=== PATIENT | male | born 1970 | race Hispanic/Latino ===

== ENCOUNTER 2018-07-05 15:24 | Inpatient (IN) | payer OTHER ==
--- NOTE | 2017-07-06 08:30 | NUR ---
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
[~2018-07-05] VITALS: Ht 172.7 cm; Wt 81.0 kg
[2018-07-05 16:01] LABS: BASOPHILS % (AUTO) 0.7 % (0.0-5.0); HEMATOCRIT 41.8 % (42-54); LYMPHOCYTES % (AUTO) 29.9 % (21.0-51.0); MEAN CORPUSCULAR HEMOGLOBIN 29.5 pg (27.0-33.0); MEAN CORPUSCULAR HGB CONC 33.7 g/dL (32.0-36.0); MEAN CORPUSCULAR VOLUME 87.4 fL (79-99); MONOCYTES % (AUTO) 8.4 % (3.0-13.0); PLATELET COUNT (AUTO) 67 K/uL (130-400); RED BLOOD CELL COUNT(AUTO) 4.78 MIL/uL (4.50-6.20); RED CELL DISTRIBUTION WIDTH 15.1 % (11.0-15.5); WHITE BLOOD COUNT (AUTO) 4.6 K/uL (4.8-10.8)
[2018-07-05 16:10] LABS: CREATININE 1.1 mg/dL (0.5-1.5); POTASSIUM 3.6 mmol/L (3.5-5.1)
[2018-07-05 16:13] LABS: INR 1.1 (0.85-1.15); PARTIAL THROMBOPLASTIN TIME 28.9 SEC (26.3-35.5); PROTHROMBIN TIME 11.5 SEC (9.6-11.6)
[2018-07-05 16:15] LABS: ALBUMIN 2.8 g/dL (3.5-5.0); BILIRUBIN,TOTAL 0.5 mg/dL (0.2-1.0); TOTAL PROTEIN, SERUM 7.6 g/dL (6.0-8.3)
[2018-07-05 16:33] LABS: B-TYPE NATRIURETIC PEPTIDE 7 pg/mL (0-100)
[2018-07-05] MEDS ORDERED: GLUCAGON 1MG KIT 1 MG ML IM PRN (18:45)
[2018-07-05] MEDS ORDERED: ONDANSETRON HCL 4 MG/2 ML VIAL IV PRN (18:45)
[2018-07-05] MEDS ORDERED: LEVOFLOXACIN 500 MG/D5W 100 ML 100 ML IV SCH (18:45)
[2018-07-05] MEDS ORDERED: DEXTROSE 50%-WATER 50 ML DISP.SYRIN IV PRN (18:45)
[2018-07-05 19:17] LABS: HEMOGLOBIN A1C 9.5 % (4.0-6.0)
[2018-07-05 20:00] VITALS: BP 131/75
--- NOTE | 2018-07-05 20:15 | NUR ---
REPORT RECEIVED FOR PT. DIRECT ADMIT FROM [facility] DUE TO IMAGES SHOWING PULMONARY NODULES.
[2018-07-05] MEDS: SODIUM CHLORIDE 0.9% 1000ML 1,000 ML IV SCH (21:00)
--- NOTE | 2018-07-05 21:00 | NUR ---
PT ASSESSMENT-MEDICATIONS RECONCILED. STATES HAS LEVAQUIN IN PO FORM AT HOME. DOES NOT RECALL DOSE. DENIES ANY SURGICAL HISTORY. STATES IS ONLY DIAGNOSED WITH DIABETES. NO DISTRESS NOTED. AAOX4. PERRLA. DOES HAD INCREASED COUGH. STATES HAS HAD COUGH FOR THE PAST FEW WEEKS. PT HAS NOTED NIGHT SWEATS IN THE LAST FEW DAYS. STATES THOUGHT THEY WERE HOT FLASHES. PT ABLE TO AMBULATE WITHOUT ASSISTANCE. VERY INDEPENDENT. UNDERSTANDS MUST BE BED REST WITH BRP. ACTIVE BOWEL SOUNDS. LAST BM 07/05. IV PATENT. ON IV FLUIDS AT 100ML/HR.
[2018-07-05] MEDS: INSULIN HUMULIN R 100 UNIT/ML 3ML SQ SCH (22:07)
[2018-07-05] MEDS ORDERED: IPRATROPIUM/ALBUTEROL SULFATE 3 ML SOLUTION IH ONE (22:44)
[2018-07-05] MEDS: IPRATROPIUM/ALBUTEROL SULFATE 3 ML SOLUTION IH SCH (23:04)
[2018-07-05] MEDS ORDERED: GLIP5TAB11 PO (23:20)
[2018-07-05] MEDS ORDERED: METF-446 PO (23:20)
[2018-07-06] VITALS: BP 119/73
--- NOTE | 2018-07-06 01:23 | NUR ---
PENDING UA, RESP CUL, AFB. PT HAD NOT BEEN ABLE TO HAVE A GOOD SPUTUM EVEN WHEN BEING INDUCE. PT AWARE OF PENDING ORDERS.
[2018-07-06] MEDS ORDERED: SODIUM CHLORIDE 3% FOR INHALATION 4 ML/AMP VIAL.NEB IH ONE ×3 (01:33→11:20)
[2018-07-06 04:00] VITALS: BP 114/73
[2018-07-06 05:29] LABS: HEMATOCRIT 39.9 % (42-54); MEAN CORPUSCULAR HEMOGLOBIN 29.3 pg (27.0-33.0); MEAN CORPUSCULAR HGB CONC 33.5 g/dL (32.0-36.0); MEAN CORPUSCULAR VOLUME 87.4 fL (79-99); PLATELET COUNT (AUTO) 54 K/uL (130-400); RED BLOOD CELL COUNT(AUTO) 4.57 MIL/uL (4.50-6.20); WHITE BLOOD COUNT (AUTO) 4.2 K/uL (4.8-10.8)
[2018-07-06 05:41] LABS: BAND NEUTROPHILS % (MANUAL) 14 % (0-2); LYMPHOCYTES % (MANUAL) 36 % (22-44); MONOCYTES % (MANUAL) 12 % (2-9); SEGMENTED NEUTROPHILS % 38 % (40-70)
[2018-07-06 05:42] LABS: MAN.DIFF COMMENT-IMPRESSION MANUAL DIFFERENTIAL; PLATELET MORPHOLOGY COMMENT DECREASED
[2018-07-06 05:45] LABS: ALBUMIN 2.6 g/dL (3.5-5.0); BILIRUBIN,TOTAL 0.8 mg/dL (0.2-1.0); TOTAL PROTEIN, SERUM 6.9 g/dL (6.0-8.3)
[2018-07-06] MEDS: IPRATROPIUM/ALBUTEROL SULFATE 3 ML SOLUTION IH SCH ×4 (06:04→22:58)
[2018-07-06] MEDS: INSULIN HUMULIN R 100 UNIT/ML 3ML SQ SCH ×4 (06:18→21:38)
[2018-07-06] MEDS: PANTOPRAZOLE SODIUM 40 MG TABLET.DR PO SCH (07:47)
[2018-07-06 07:56] VITALS: BP 124/72
[2018-07-06 08:57] LABS: APPEARANCE,URINE Clear (CLEAR); BILIRUBIN,URINE Negative (NEGATIVE); COLOR,URINE Yellow (YELLOW); GLUCOSE, URINE (UA) Negative (NEGATIVE); KETONES,URINE Negative (NEGATIVE); LEUKOCYTE ESTERASE ,URINE Moderate (NEGATIVE); NITRATE,URINE Negative (NEGATIVE); OCCULT BLOOD,URINE Negative (NEGATIVE); PROTEIN,URINE Negative (NEGATIVE); UROBILINOGEN,URINE 0.2 mg/dL (0.2-1.0)
[2018-07-06] MEDS ORDERED: METFORMIN HCL 500 MG TABLET PO SCH (09:00)
[2018-07-06] MEDS ORDERED: GLIPIZIDE 5 MG TABLET PO SCH (09:00)
[2018-07-06 09:03] LABS: BACTERIA,URINE Rare /HPF (None Seen); RBC,URINE 0-1 /HPF (0-1); SQUAMOUS EPITHELIAL CELL,UR Rare /HPF (0-2)
[2018-07-06] MEDS: SODIUM CHLORIDE 0.9% 1000ML 1,000 ML IV SCH ×2 (09:30→21:32)
[2018-07-06 10:59] VITALS: BP 129/66
[2018-07-06 16:47] VITALS: BP 133/63
[2018-07-06] MEDS ORDERED: SODIUM CHLORIDE 0.9% 250 ML IV ONE (16:48)
--- NOTE | 2018-07-06 16:50 | NUR ---
PPD- PT IDENTIFIED USING 2 PT IDENTIFIERS. PLACED PPD TO RIGHT ANTERIOR FOREARM, NO BLEEDING OR HEMATOMA NOTED. WILL READ ON 72 HRS.
[2018-07-06] MEDS: CEFEPIME HCL 2 GM VIAL IVP SCH ×2 (18:53→23:48)
[2018-07-06 20:00] VITALS: BP 126/78
[2018-07-06] MEDS: DOXYCYCLINE HYCLATE 100 MG TABLET PO SCH (21:31)
[2018-07-07] VITALS: BP 117/71
[2018-07-07 04:00] VITALS: BP 138/86
[2018-07-07 04:15] LABS: ABG BASE EXCESS -0.9 mmol/L (-2.0-3.0); ABG HCO3 22.6 mmol/L (21.0-28.0); ABG OXYGEN SATURATION 95.3 % (95.0-99.0); ABG PCO2 34 mmHg (35-48)
[2018-07-07 04:38] LABS: BASOPHILS % (AUTO) 0.8 % (0.0-5.0); EOSINOPHILS % (AUTO) 2.2 % (0.0-8.0); HEMATOCRIT 39.4 % (42-54); LYMPHOCYTES % (AUTO) 28.3 % (21.0-51.0); MEAN CORPUSCULAR HEMOGLOBIN 29.5 pg (27.0-33.0); MEAN CORPUSCULAR HGB CONC 33.6 g/dL (32.0-36.0); MEAN CORPUSCULAR VOLUME 87.7 fL (79-99); MONOCYTES % (AUTO) 11.3 % (3.0-13.0); NEUTROPHILS % (AUTO) 57.4 % (40.0-77.0); NUCLEATED RED BLOOD CELLS 0.1 % (0.0-0.19); PLATELET COUNT (AUTO) 74 K/uL (130-400); RED BLOOD CELL COUNT(AUTO) 4.49 MIL/uL (4.50-6.20); RED CELL DISTRIBUTION WIDTH 15.3 % (11.0-15.5); WHITE BLOOD COUNT (AUTO) 3.5 K/uL (4.8-10.8)
[2018-07-07 04:52] LABS: INR 1.12 (0.85-1.15); PARTIAL THROMBOPLASTIN TIME 29.4 SEC (26.3-35.5); PROTHROMBIN TIME 11.7 SEC (9.6-11.6)
[2018-07-07 05:36] LABS: CREATININE 0.9 mg/dL (0.5-1.5); MAGNESIUM 1.7 mg/dL (1.80-2.40); PHOSPHORUS 3.4 mg/dL (2.5-4.9); POTASSIUM 3.8 mmol/L (3.5-5.1)
[2018-07-07] MEDS: INSULIN HUMULIN R 100 UNIT/ML 3ML SQ SCH ×3 (05:51→16:30)
[2018-07-07] MEDS: GUAIFENESIN-CODEINE 5 ML SYRUP PO PRN ×3 (06:03→20:34)
[2018-07-07] MEDS: IPRATROPIUM/ALBUTEROL SULFATE 3 ML SOLUTION IH SCH ×4 (07:07→23:25)
[2018-07-07 08:00] VITALS: BP 126/66
[2018-07-07] MEDS: PANTOPRAZOLE SODIUM 40 MG TABLET.DR PO SCH (09:13)
[2018-07-07] MEDS: DOXYCYCLINE HYCLATE 100 MG TABLET PO SCH ×2 (09:13→20:27)
[2018-07-07] MEDS: CEFEPIME HCL 2 GM VIAL IVP SCH ×2 (09:13→16:10)
[2018-07-07] MEDS: SODIUM CHLORIDE 0.9% 1000ML 1,000 ML IV SCH ×2 (10:48→20:34)
[2018-07-07 12:00] VITALS: BP 131/78
[2018-07-07 16:00] VITALS: BP 146/84
[2018-07-07] MEDS: MAGNESIUM 2GM PREMIX 50ML 50 ML IV SCH (16:10)
[2018-07-07 19:20] VITALS: BP 123/73
[2018-07-07] MEDS: ACETAMINOPHEN 325 MG TAB PO PRN (20:37)
[2018-07-08] VITALS (9 sets, daily range): BP systolic 102–133; BP diastolic 55–76
[2018-07-08] MEDS: CEFEPIME HCL 2 GM VIAL IVP SCH ×4 (00:07→22:49)
[2018-07-08] MEDS: INSULIN HUMULIN R 100 UNIT/ML 3ML SQ SCH ×5 (00:14→22:59)
[2018-07-08 04:35] LABS: BASOPHILS % (AUTO) 0.9 % (0.0-5.0); EOSINOPHILS % (AUTO) 3.3 % (0.0-8.0); HEMATOCRIT 41.6 % (42-54); LYMPHOCYTES % (AUTO) 31.1 % (21.0-51.0); MEAN CORPUSCULAR HEMOGLOBIN 29.5 pg (27.0-33.0); MEAN CORPUSCULAR HGB CONC 33.2 g/dL (32.0-36.0); MEAN CORPUSCULAR VOLUME 88.7 fL (79-99); MONOCYTES % (AUTO) 18.8 % (3.0-13.0); NEUTROPHILS % (AUTO) 45.9 % (40.0-77.0); PLATELET COUNT (AUTO) 68 K/uL (130-400); RED BLOOD CELL COUNT(AUTO) 4.69 MIL/uL (4.50-6.20); RED CELL DISTRIBUTION WIDTH 15.4 % (11.0-15.5); WHITE BLOOD COUNT (AUTO) 3.6 K/uL (4.8-10.8)
[2018-07-08 04:52] LABS: POTASSIUM 3.8 mmol/L (3.5-5.1)
[2018-07-08] MEDS: IPRATROPIUM/ALBUTEROL SULFATE 3 ML SOLUTION IH SCH ×4 (06:03→23:53)
[2018-07-08] MEDS: SODIUM CHLORIDE 0.9% 1000ML 1,000 ML IV SCH ×2 (06:40→17:15)
[2018-07-08] MEDS ORDERED: SODIUM CHLORIDE 0.9% 250 ML IV ONE (08:31)
[2018-07-08] MEDS: DOXYCYCLINE HYCLATE 100 MG TABLET PO SCH ×2 (09:00→20:25)
[2018-07-08] MEDS: PANTOPRAZOLE SODIUM 40 MG TABLET.DR PO SCH (09:00)
[2018-07-08] MEDS ORDERED: PROPOFOL 1000 MG/100 ML 100 ML IV ONE (12:02)
[2018-07-08] MEDS ORDERED: GLYCOPYRROLATE 0.2 MG/ML 5 ML VIAL ONE (12:02)
[2018-07-08] MEDS ORDERED: SUCCINYLCHOLINE CHLORIDE 20 MG/ML 10 ML VIAL ONE (12:03)
[2018-07-08] MEDS ORDERED: EPHEDRINE SULFATE 50 MG/ML AMPULE ONE (12:05)
[2018-07-08] MEDS ORDERED: PHENYLEPHRINE HCL 10 MG/ML 1ML VIAL IV ONE (12:05)
[2018-07-08] MEDS ORDERED: LIDOCAINE HCL 1% 20 ML VIAL ONE (12:13)
--- NOTE | 2018-07-08 12:35 | NUR ---
OLVIN RECD A TRIGGER TO TALK TO PT ABOUT HIS INSURANCE- CALL REFERRED TO FINANCIAL COUNSELLOR- MARLYS WILL FOLLOW UP THIS AFTERNOON
--- NOTE | 2018-07-08 14:15 | NUR ---
PT C/O PAIN TO LEG PT C/O PAIN, " SORE LIKE" PAIN TO LEFT LEG, AND HAS SOME NUMBNESS TO TOES, ARE TO MOVE TOES AND PEDAL PULSES PRESENT, FOOT WARM TO TOUCH, INFORMED WILL CALL MD, AND CONTINUE TO MONITOR, NO DISTRESS NOTED S/P BRONCHOSCOPY.
--- NOTE | 2018-07-08 14:20 | NUR ---
PAGE DR. BLANCO T/C PLACED TO ANSWERING SERVICE PAGED DR. BLANCO, PENDING CALL BACK.
--- NOTE | 2018-07-08 14:38 | NUR ---
CALL FROM T/C FROM DR. BLANCO, INFORMED HIM OF PT'S SYMPTOMS, ORDERS GIVEN.
[2018-07-08] MEDS ORDERED: HYDROCODONE/ACETAMINOPHEN 5/325 MG TAB PO PRN (14:45)
[2018-07-08] MEDS: GUAIFENESIN-CODEINE 5 ML SYRUP PO PRN ×2 (16:37→20:25)
[2018-07-08 17:06] LABS: SPECIMENTYPE,BODY FLUID LAVAGE
[2018-07-08 17:08] LABS: APPEARANCE BODY FLUID SLIGHTLY CLOUDY (CLEAR); COLOR,BODY FLUID XANTHOCHROMIC (LT YELLOW); TOTAL VOLUME,BODY FLUID 20 mL
[2018-07-08 17:09] LABS: BODY FLUID WBC 23 /cu. mm.
[2018-07-08 17:10] LABS: BODY FLUID RBC 325 /cu. mm.
[2018-07-08 17:24] LABS: BF MESOTHELIAL 88 %
[2018-07-08 17:37] LABS: APPEARANCE BODY FLUID CLOUDY (CLEAR); SPECIMENTYPE,BODY FLUID LAVAGE
[2018-07-08 17:38] LABS: COLOR,BODY FLUID OTHER (LT YELLOW); TOTAL VOLUME,BODY FLUID 20 mL
[2018-07-08 17:41] LABS: BODY FLUID WBC 363 /cu. mm.
[2018-07-08 17:42] LABS: BODY FLUID RBC 2 /cu. mm.
[2018-07-08 17:48] LABS: BF EOSINOPHIL 13 %; BF MESOTHELIAL 70 %
--- NOTE | 2018-07-08 18:04 | NUR ---
Nutrition Education: Dietitian consult requested for food preferences. Pt was provided diet education on Carbohydrate counting for diabetics. Pt is currently on a 75 gm CCD. Pt states he doesn't like hospital food. 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 Pt was counseled on CHO counting. Pt verbalized understanding of diet education. Pt was encouraged to count carbs with his meals. Pt was made villaseñor of alternate food choices at each meal. Pt states he will try to eat some meals. Pt asked for Glucerna 1 can a day. Pt was provided diet education. Pt has been diabetic for 12 years. Pt states he knows his hgbA1C is around 9 as he gets quarterly physicals at work. Pt states if he has to take insulin he can not work. Will continue to monitor lab panel. Addendum: 07/08/18 at [address] Amended: Links added.
--- NOTE | 2018-07-08 18:15 | NUR ---
Nutrition Assessment: Dietitian consult requested by for food preferences/po intake.Pt is on a 75gm CCD. Pt with poor po intake. Pt refuses to eat foods offered. pt states he does not follow a diet at home. Labs reviewed: alb 2.6. bMI 27.9 (overweight). Pt has been diabetic for over 12 yeears. Pt with no skin breakdown. LBM 07/05/18. Pt asked for nutritional supplement. Recommend glucerna 1 can with lunch tray. Pt agreed to count his carbs at each meal and will try to eat some of the foods. Pt states he prefers boiled eggs and likes pancakes/waffles at breakfast. RD to monitor po intake. RD to f/u in 3-5 days. Addendum: 07/08/18 at [address] Amended: Links added.
[2018-07-09] MEDS: SODIUM CHLORIDE 0.9% 1000ML 1,000 ML IV SCH ×2 (02:40→11:55)
[2018-07-09 03:40] VITALS: BP 123/70
[2018-07-09 04:55] LABS: BASOPHILS % (AUTO) 0.6 % (0.0-5.0); EOSINOPHILS % (AUTO) 2.4 % (0.0-8.0); HEMATOCRIT 39.1 % (42-54); LYMPHOCYTES % (AUTO) 20.3 % (21.0-51.0); MEAN CORPUSCULAR HEMOGLOBIN 29.2 pg (27.0-33.0); MEAN CORPUSCULAR HGB CONC 33.2 g/dL (32.0-36.0); MONOCYTES % (AUTO) 13.6 % (3.0-13.0); NEUTROPHILS % (AUTO) 63.1 % (40.0-77.0); NUCLEATED RED BLOOD CELLS 0.1 % (0.0-0.19); PLATELET COUNT (AUTO) 82 K/uL (130-400); RED BLOOD CELL COUNT(AUTO) 4.45 MIL/uL (4.50-6.20); RED CELL DISTRIBUTION WIDTH 15.4 % (11.0-15.5); WHITE BLOOD COUNT (AUTO) 4.4 K/uL (4.8-10.8)
[2018-07-09 05:20] LABS: CREATININE 0.9 mg/dL (0.5-1.5); MAGNESIUM 1.8 mg/dL (1.80-2.40); POTASSIUM 4.1 mmol/L (3.5-5.1)
[2018-07-09] MEDS: IPRATROPIUM/ALBUTEROL SULFATE 3 ML SOLUTION IH SCH ×4 (06:04→23:06)
[2018-07-09] MEDS ORDERED: PHARMACY COMMUNICATION MISC SCH (07:00)
[2018-07-09] MEDS: INSULIN HUMULIN R 100 UNIT/ML 3ML SQ SCH ×4 (07:01→20:59)
[2018-07-09] MEDS: ACETAMINOPHEN 325 MG TAB PO PRN ×2 (07:06→16:38)
[2018-07-09] MEDS: GUAIFENESIN-CODEINE 5 ML SYRUP PO PRN ×2 (07:06→20:59)
[2018-07-09 07:30] VITALS: BP 123/69
[2018-07-09] MEDS: DOXYCYCLINE HYCLATE 100 MG TABLET PO SCH ×2 (09:05→20:59)
[2018-07-09] MEDS: PANTOPRAZOLE SODIUM 40 MG TABLET.DR PO SCH (09:05)
--- NOTE | 2018-07-09 09:30 | NUR ---
PPD NEGATIVE 0MM. INFORMED PRIMARY NURSE.
[2018-07-09 11:00] VITALS: BP 137/77
[2018-07-09] MEDS: MAGNESIUM 2GM PREMIX 50ML 50 ML IV SCH (11:44)
[2018-07-09 15:30] VITALS: BP 137/72
[2018-07-09] MEDS: CEFEPIME HCL 2 GM VIAL IVP SCH (16:37)
[2018-07-09 19:00] VITALS: BP 131/84
--- NOTE | 2018-07-09 20:00 | NUR ---
PM Assessment Alert and oriented x3. Complaining that IV to left antecubital has been there since Thursday with tenderness to touch, discontinued and new 18 gauge IV started to left forearm, tolerated well. Instructed to report any sputum production for collection of AFB culture, verbalized understanding.
[2018-07-10] VITALS (7 sets, daily range): BP systolic 101–154; BP diastolic 65–76
[2018-07-10] MEDS: CEFEPIME HCL 2 GM VIAL IVP SCH ×4 (00:37→23:45)
[2018-07-10] MEDS: SODIUM CHLORIDE 0.9% 1000ML 1,000 ML IV SCH ×3 (00:37→18:30)
[2018-07-10 05:21] LABS: HEMATOCRIT 41.2 % (42-54); MEAN CORPUSCULAR HEMOGLOBIN 29.3 pg (27.0-33.0); MEAN CORPUSCULAR VOLUME 88.8 fL (79-99); NUCLEATED RED BLOOD CELLS 0.1 % (0.0-0.19); PLATELET COUNT (AUTO) 64 K/uL (130-400); RED BLOOD CELL COUNT(AUTO) 4.64 MIL/uL (4.50-6.20); RED CELL DISTRIBUTION WIDTH 15.7 % (11.0-15.5); WHITE BLOOD COUNT (AUTO) 3.5 K/uL (4.8-10.8)
[2018-07-10] MEDS: GUAIFENESIN-CODEINE 5 ML SYRUP PO PRN (05:32)
[2018-07-10] MEDS: ACETAMINOPHEN 325 MG TAB PO PRN ×2 (05:32→15:46)
[2018-07-10] MEDS: INSULIN HUMULIN R 100 UNIT/ML 3ML SQ SCH ×4 (05:35→20:58)
[2018-07-10 05:48] LABS: ALANINE AMINOTRANSFERASE 51 U/L (12-78); ALBUMIN 2.7 g/dL (3.5-5.0); ASPARTATE AMINOTRANSFERASE 64 U/L (10-37); BILIRUBIN,TOTAL 0.8 mg/dL (0.2-1.0); CARBON DIOXIDE 27 mmol/L (21-32); CHLORIDE 101 mmol/L (101-111); GLOMERULAR FILTR. RATE CALC 84 mL/min (>60); GLUCOSE,RANDOM 224 mg/dL (70-105); MYOGLOBIN 44 ng/mL (10-92); PHOSPHORUS 2.3 mg/dL (2.5-4.9); POTASSIUM 4.3 mmol/L (3.5-5.1); SODIUM SERUM 135 mmol/L (136-145); TOTAL PROTEIN, SERUM 7.3 g/dL (6.0-8.3); TROPONIN I < 0.04 ng/mL (0.00-0.06); UREA NITROGEN, BLOOD 8 mg/dL (7-18)
[2018-07-10 05:51] LABS: CREATINE KINASE, TOTAL 562 U/L (21-232)
[2018-07-10] MEDS: IPRATROPIUM/ALBUTEROL SULFATE 3 ML SOLUTION IH SCH ×4 (06:16→23:35)
[2018-07-10 06:46] LABS: ERYTHROCYTE SEDIMENTATION RATE 30 MM/HR (0-20)
[2018-07-10] MEDS: DOXYCYCLINE HYCLATE 100 MG TABLET PO SCH ×2 (08:20→20:59)
[2018-07-10] MEDS: PANTOPRAZOLE SODIUM 40 MG TABLET.DR PO SCH (08:20)
[2018-07-10] MEDS: PHENOL 177 ML BOTTLE PO PRN ×2 (17:00→21:00)
--- NOTE | 2018-07-10 21:00 | NUR ---
MEDS PT RESTING IN BED, NO CONCERNS VERBALIZED. NO DISTRESS NOTED. DUE MEDS ADMINISTERED, TOLERATED WELL. KEPT RESTED IN BED. ENCOURAGED TO SLEEP. WILL CONTINUE TO MONITOR.
[2018-07-11] MEDS: SODIUM CHLORIDE 0.9% 1000ML 1,000 ML IV SCH ×5 (00:54→23:53)
--- NOTE | 2018-07-11 02:00 | NUR ---
ROUNDS PT RESTING WELL, FAIRLY ASLEEP WITH RESPIRATIONS EVEN AND UNLABORED. NO NOTED DISTRESS. KEPT UNDISTURBED FOR NOW. WILL MONITOR PT.
[2018-07-11 04:30] VITALS: BP 121/73
--- NOTE | 2018-07-11 05:36 | NUR ---
ROUNDS PCP IN TO MONITOR V/S, STABLE AT THIS TIME. NO CONCERNS VERBALIZED. NO DISTRESS NOTED. KEPT RESTED AND COMFORTABLE. FOR MORE CARE.
[2018-07-11 05:43] LABS: BASOPHILS % (AUTO) 0.4 % (0.0-5.0); EOSINOPHILS % (AUTO) 3.9 % (0.0-8.0); HEMATOCRIT 41.2 % (42-54); LYMPHOCYTES % (AUTO) 30.8 % (21.0-51.0); MEAN CORPUSCULAR HEMOGLOBIN 29.2 pg (27.0-33.0); MEAN CORPUSCULAR HGB CONC 33.1 g/dL (32.0-36.0); MEAN CORPUSCULAR VOLUME 88.3 fL (79-99); MONOCYTES % (AUTO) 13.7 % (3.0-13.0); NEUTROPHILS % (AUTO) 51.2 % (40.0-77.0); NUCLEATED RED BLOOD CELLS 0.2 % (0.0-0.19); PLATELET COUNT (AUTO) 66 K/uL (130-400); RED BLOOD CELL COUNT(AUTO) 4.67 MIL/uL (4.50-6.20); RED CELL DISTRIBUTION WIDTH 15.2 % (11.0-15.5); WHITE BLOOD COUNT (AUTO) 4.2 K/uL (4.8-10.8)
[2018-07-11] MEDS: IPRATROPIUM/ALBUTEROL SULFATE 3 ML SOLUTION IH SCH ×4 (06:05→23:55)
[2018-07-11 06:08] LABS: CARBON DIOXIDE 27 mmol/L (21-32); CHLORIDE 104 mmol/L (101-111); CREATINE KINASE, TOTAL 266 U/L (21-232); GLOMERULAR FILTR. RATE CALC 84 mL/min (>60); GLUCOSE,RANDOM 115 mg/dL (70-105); MYOGLOBIN 46 ng/mL (10-92); PHOSPHORUS 3.4 mg/dL (2.5-4.9); POTASSIUM 4.6 mmol/L (3.5-5.1); SODIUM SERUM 138 mmol/L (136-145); TROPONIN I < 0.04 ng/mL (0.00-0.06); UREA NITROGEN, BLOOD 9 mg/dL (7-18)
[2018-07-11] MEDS: INSULIN HUMULIN R 100 UNIT/ML 3ML SQ SCH ×4 (06:21→20:29)
[2018-07-11] MEDS: MAGNESIUM 2GM PREMIX 50ML 50 ML IV SCH (06:40)
[2018-07-11] MEDS: CEFEPIME HCL 2 GM VIAL IVP SCH ×3 (06:41→23:53)
--- NOTE | 2018-07-11 06:50 | NUR ---
DEGREE CLERK HOSPITALIST DEGREE CLERK, LARISA, IN TO SEE PT. NO NEW ORDERS GIVEN. WILL ENDORSE TO AM SHIFT FOR MORE CARE.
[2018-07-11] MEDS: DOXYCYCLINE HYCLATE 100 MG TABLET PO SCH ×2 (07:54→19:38)
[2018-07-11] MEDS: PANTOPRAZOLE SODIUM 40 MG TABLET.DR PO SCH (07:54)
[2018-07-11 08:00] VITALS: BP 104/76
[2018-07-11] MEDS: GUAIFENESIN-CODEINE 5 ML SYRUP PO PRN ×2 (11:34→19:38)
[2018-07-11 12:00] VITALS: BP 123/74
[2018-07-11] MEDS ORDERED: MAGNESIUM 2GM PREMIX 50ML 50 ML IV SCH (13:45)
[2018-07-11 16:00] VITALS: BP 124/78
[2018-07-11 20:00] VITALS: BP 126/70
--- NOTE | 2018-07-11 22:00 | NUR ---
ROUNDS PT RESTING WELL, NO DISTRESS NOTED. NO COMPLAINTS VERBALIZED. KEPT RESTED IN BED. WILL MONITOR PT. CALL LIGHT WITHIN REACH.
[2018-07-12] VITALS (7 sets, daily range): BP systolic 112–129; BP diastolic 66–77
--- NOTE | 2018-07-12 02:00 | NUR ---
ROUNDS PT RESTING WELL, FAIRLY ASLEEP WITH RESPIRATIONS EVEN AND UNLABORED. NO NOTED DISTRESS. KEPT UNDISTURBED FOR NOW. WILL CONTINUE TO MONITOR. CALL LIGHT WITHIN REACH.
[2018-07-12] MEDS: SODIUM CHLORIDE 0.9% 1000ML 1,000 ML IV SCH (02:31)
--- NOTE | 2018-07-12 05:29 | NUR ---
ROUNDS PT RESTING WELL, NO DISTRESS NOTED. NO CONCERNS VERBALIZED. KEPT RESTED. FOR MORE CARE.
[2018-07-12 05:37] LABS: HEMATOCRIT 39.7 % (42-54); MEAN CORPUSCULAR HEMOGLOBIN 29.1 pg (27.0-33.0); MEAN CORPUSCULAR HGB CONC 33.2 g/dL (32.0-36.0); MEAN CORPUSCULAR VOLUME 87.8 fL (79-99); NUCLEATED RED BLOOD CELLS 0.1 % (0.0-0.19); PLATELET COUNT (AUTO) 56 K/uL (130-400); RED BLOOD CELL COUNT(AUTO) 4.52 MIL/uL (4.50-6.20); RED CELL DISTRIBUTION WIDTH 15.3 % (11.0-15.5)
[2018-07-12 06:00] LABS: CARBON DIOXIDE 26 mmol/L (21-32); CHLORIDE 104 mmol/L (101-111); CREATINE KINASE, TOTAL 178 U/L (21-232); GLOMERULAR FILTR. RATE CALC 84 mL/min (>60); GLUCOSE,RANDOM 171 mg/dL (70-105); MYOGLOBIN 44 ng/mL (10-92); POTASSIUM 4.3 mmol/L (3.5-5.1); SODIUM SERUM 138 mmol/L (136-145); TROPONIN I < 0.04 ng/mL (0.00-0.06); UREA NITROGEN, BLOOD 9 mg/dL (7-18)
[2018-07-12] MEDS: INSULIN HUMULIN R 100 UNIT/ML 3ML SQ SCH ×4 (06:03→22:25)
[2018-07-12] MEDS: MAGNESIUM 2GM PREMIX 50ML 50 ML IV SCH (06:28)
[2018-07-12] MEDS: CEFEPIME HCL 2 GM VIAL IVP SCH ×3 (06:28→23:54)
--- NOTE | 2018-07-12 06:41 | NUR ---
BUSINESS CONTINUITY ANALYST LARISA, BUSINESS CONTINUITY ANALYST FOR HOSPITALIST, IN TO SEE THE PT. UPDATED ON PT'S CONDITION. NEW ORDERS GIVEN, PLEASE REFER TO CPOE.
[2018-07-12] MEDS: IPRATROPIUM/ALBUTEROL SULFATE 3 ML SOLUTION IH SCH ×4 (06:50→23:25)
[2018-07-12] MEDS: DOXYCYCLINE HYCLATE 100 MG TABLET PO SCH ×2 (10:43→22:21)
[2018-07-12] MEDS: PANTOPRAZOLE SODIUM 40 MG TABLET.DR PO SCH (10:43)
[2018-07-12] MEDS: GUAIFENESIN-CODEINE 5 ML SYRUP PO PRN (10:44)
--- NOTE | 2018-07-12 16:11 | NUR ---
cm note met with patient and states resides at home with girlfriend. states no dc needs at dc. dcplan is back to same home setting. awaiting results of afbs.
--- NOTE | 2018-07-12 22:25 | NUR ---
MEDS PT STILL AWAKE, WATCHING TV. DUE MEDS ADMINISTERED, TOLERATED WELL. ENCOURAGED TO REST AND SLEEP. CALL LIGHT WITHIN REACH. WILL MONITOR PT.
--- NOTE | 2018-07-13 02:00 | NUR ---
ROUNDS PT RESTING WELL, FAIRLY ASLEEP WITH RESPIRATIONS EVEN AND UNLABORED. NO NOTED DISTRESS. KEPT UNDISTURBED FOR NOW. WILL CONTINUE TO MONITOR.
--- NOTE | 2018-07-13 03:35 | NUR ---
REFER MICKEY POWELL VEHICLE SERVICE ATTENDANT FOR HOSPITALIST, PAGED VIA ANSWERING SERVICE AND MADE AWARE OF PULMONOLOGY REQUESTS FOR REFERRAL TO DANCE STUDIO MANAGER. PA STATED THAT DUE TO LIVER CIRRHOSIS, PT'S PLATELETS WILL BE LOW. NO REFERRAL ORDERED.
[2018-07-13 04:26] VITALS: BP 118/70
[2018-07-13 04:27] LABS: BASOPHILS % (AUTO) 0.9 % (0.0-5.0); HEMATOCRIT 41.3 % (42-54); LYMPHOCYTES % (AUTO) 35.1 % (21.0-51.0); MEAN CORPUSCULAR HEMOGLOBIN 29.7 pg (27.0-33.0); MEAN CORPUSCULAR HGB CONC 33.7 g/dL (32.0-36.0); MEAN CORPUSCULAR VOLUME 88.2 fL (79-99); MONOCYTES % (AUTO) 9.1 % (3.0-13.0); NEUTROPHILS % (AUTO) 50.9 % (40.0-77.0); NUCLEATED RED BLOOD CELLS 0.1 % (0.0-0.19); PLATELET COUNT (AUTO) 62 K/uL (130-400); RED BLOOD CELL COUNT(AUTO) 4.68 MIL/uL (4.50-6.20); RED CELL DISTRIBUTION WIDTH 15.3 % (11.0-15.5); WHITE BLOOD COUNT (AUTO) 4.2 K/uL (4.8-10.8)
[2018-07-13 04:44] LABS: ALBUMIN 2.8 g/dL (3.5-5.0); BILIRUBIN,TOTAL 0.5 mg/dL (0.2-1.0); MAGNESIUM 1.8 mg/dL (1.80-2.40); POTASSIUM 4.1 mmol/L (3.5-5.1); TOTAL PROTEIN, SERUM 7.6 g/dL (6.0-8.3)
[2018-07-13] MEDS: MAGNESIUM 2GM PREMIX 50ML 50 ML IV SCH (05:34)
--- NOTE | 2018-07-13 05:50 | NUR ---
WALK PT JUST HAD A SHOWER AND IS WALKING AROUND THE FLOOR WITH A MASK ON. PT WENT BACK TO BED AND STARTED ON MAGNESIUM COVERAGE IV. KEPT RESTED. FOR MORE CARE.
[2018-07-13] MEDS: IPRATROPIUM/ALBUTEROL SULFATE 3 ML SOLUTION IH SCH ×4 (06:35→23:30)
[2018-07-13] MEDS: INSULIN HUMULIN R 100 UNIT/ML 3ML SQ SCH ×4 (06:44→21:27)
--- NOTE | 2018-07-13 06:48 | NUR ---
MILIEU COORDINATOR AJ, MILIEU COORDINATOR FOR HOSPITALIST IN TO SEE PT. NEW ORDERS GIVEN, PLEASE REFER TO CPOE. CALLED LAB FOR FOLLOW UP IN RESPIRATORY CX RESULTS. SPOKE WITH DARIAN AND RUBBER TUBING BACKER WAS INFORMED THAT AFB CX RESULTS TAKE UP TO TWO WEEKS TO GET. INFORMED MILIEU COORDINATOR ATT HIS TIME.
[2018-07-13 08:00] VITALS: BP 123/72
[2018-07-13] MEDS: PANTOPRAZOLE SODIUM 40 MG TABLET.DR PO SCH (09:01)
[2018-07-13] MEDS: DOXYCYCLINE HYCLATE 100 MG TABLET PO SCH ×2 (09:01→21:26)
[2018-07-13] MEDS: CEFEPIME HCL 2 GM VIAL IVP SCH ×2 (09:01→18:57)
[2018-07-13 11:48] VITALS: BP 126/71
[2018-07-13 15:30] VITALS: BP 139/82
--- NOTE | 2018-07-13 16:00 | NUR ---
pharmacy notified about no cefepime in med room
--- NOTE | 2018-07-13 16:51 | NUR ---
Nutrition f/u: Pt on CCD 75gm diet with 100% intake. Pt dislikes hospital food; family bringing food from home. LBM 07/13. No nutrition intervention made at this time. Please consult JULIET as nutrition concerns arise. Addendum: 07/13/18 at [address] Amended: Links added.
--- NOTE | 2018-07-13 17:25 | NUR ---
pharmacy re-notified about no cefepime in med room
[2018-07-13] MEDS: METHYLPREDNISOLONE SOD SUCC 40MG/ML 1ML IVP SCH (18:18)
[2018-07-13 20:22] VITALS: BP 132/71
[2018-07-13] MEDS ORDERED: MAGNESIUM 2GM PREMIX 50ML 50 ML IV PRN (22:30)
[2018-07-14] MEDS: CEFEPIME HCL 2 GM VIAL IVP SCH ×4 (00:04→22:56)
[2018-07-14 00:27] VITALS: BP 123/64
[2018-07-14 03:38] VITALS: BP 111/72
[2018-07-14 04:30] LABS: BASOPHILS % (AUTO) 0.2 % (0.0-5.0); EOSINOPHILS % (AUTO) 0.1 % (0.0-8.0); HEMATOCRIT 43.2 % (42-54); LYMPHOCYTES % (AUTO) 18.8 % (21.0-51.0); MEAN CORPUSCULAR HEMOGLOBIN 29.5 pg (27.0-33.0); MEAN CORPUSCULAR HGB CONC 33.6 g/dL (32.0-36.0); MONOCYTES % (AUTO) 1.6 % (3.0-13.0); NEUTROPHILS % (AUTO) 79.3 % (40.0-77.0); NUCLEATED RED BLOOD CELLS 0.1 % (0.0-0.19); PLATELET COUNT (AUTO) 54 K/uL (130-400); RED BLOOD CELL COUNT(AUTO) 4.91 MIL/uL (4.50-6.20); RED CELL DISTRIBUTION WIDTH 15.1 % (11.0-15.5); WHITE BLOOD COUNT (AUTO) 4.1 K/uL (4.8-10.8)
[2018-07-14 04:46] LABS: CRP QUANTITATIVE 12.2 mg/L (0.00-9.0); MAGNESIUM 2.5 mg/dL (1.80-2.40); POTASSIUM 4.5 mmol/L (3.5-5.1)
[2018-07-14] MEDS: IPRATROPIUM/ALBUTEROL SULFATE 3 ML SOLUTION IH SCH ×4 (06:08→22:58)
[2018-07-14] MEDS: INSULIN HUMULIN R 100 UNIT/ML 3ML SQ SCH ×4 (07:57→21:04)
[2018-07-14 08:00] VITALS: BP 135/81
[2018-07-14] MEDS: DOXYCYCLINE HYCLATE 100 MG TABLET PO SCH ×2 (09:46→20:57)
[2018-07-14] MEDS: PANTOPRAZOLE SODIUM 40 MG TABLET.DR PO SCH (09:46)
[2018-07-14 12:00] VITALS: BP 118/82
[2018-07-14] MEDS: METHYLPREDNISOLONE SOD SUCC 40MG/ML 1ML IVP SCH (15:02)
[2018-07-14 16:00] VITALS: BP 115/66
[2018-07-14 20:00] VITALS: BP 138/77
[2018-07-14] MEDS: ACETAMINOPHEN 325 MG TAB PO PRN (20:58)
--- NOTE | 2018-07-14 21:00 | NUR ---
MEDS DUE MEDS ADMINISTERED, TOLERATED WELL. PT ASK ABOUT DELAY IN D/C. PT MADE AWARE THAT ALL LAB RESULTS ARE BEING CONSOLIDATED STILL AND MD WILL DISCUSS PATHOLOGY RESULTS IN AM ROUNDS. PT VERBALIZES UNDERSTANDING.
[2018-07-15] VITALS: BP_SYST 117; BP_SYST 128; BP_DIAS 69
--- NOTE | 2018-07-15 01:58 | NUR ---
ROUNDS PT RESTING WELL, FAIRLY ASLEEP WITH RESPIRATIONS EVEN AND UNLABORED. NO NOTED DISTRESS. KEPT UNDISTURBED FOR NOW. WILL CONTINUE TO MONITOR. CALL LIGHT WITHIN REACH.
[2018-07-15 04:00] VITALS: BP 128/69
--- NOTE | 2018-07-15 05:31 | NUR ---
ROUNDS PT RESTING WELL. NO DISTRESS NOTED. NO CONCERNS VERBALIZED. KEPT COMFORTABLE. FOR MORE CARE.
[2018-07-15] MEDS: INSULIN HUMULIN R 100 UNIT/ML 3ML SQ SCH ×4 (06:22→22:26)
[2018-07-15] MEDS: IPRATROPIUM/ALBUTEROL SULFATE 3 ML SOLUTION IH SCH ×4 (07:12→23:09)
[2018-07-15 08:00] VITALS: BP 128/71
[2018-07-15] MEDS: DOXYCYCLINE HYCLATE 100 MG TABLET PO SCH (09:50)
[2018-07-15] MEDS: PANTOPRAZOLE SODIUM 40 MG TABLET.DR PO SCH (09:50)
[2018-07-15] MEDS: CEFEPIME HCL 2 GM VIAL IVP SCH ×2 (09:50→16:11)
--- NOTE | 2018-07-15 10:31 | NUR ---
Notified Alexa, pt. advocate, pt. needs a letter for work regarding FLMA, Alexa stated she will give pt. a letter stating he's here in the hospital.
[2018-07-15] MEDS ORDERED: LACTULOSE 20 GM/30 ML UDCUP PO PRN (10:45)
[2018-07-15 12:00] VITALS: BP 125/84
[2018-07-15] MEDS: INSULIN GLARGINE 100 UNITS/ML 10 ML VIAL SQ SCH ×2 (12:03→22:27)
[2018-07-15] MEDS: ETHAMBUTOL HCL 400 MG TABLET PO SCH (14:26)
[2018-07-15] MEDS: PYRIDOXINE HCL 50 MG TABLET PO SCH (14:27)
[2018-07-15] MEDS: GUAIFENESIN 600 MG TABLET.ER PO SCH ×2 (14:27→22:17)
[2018-07-15] MEDS: RIFAMPIN 300 MG CAPSULE PO SCH (14:27)
[2018-07-15] MEDS: ISONIAZID 300 MG TAB PO SCH (14:27)
[2018-07-15] MEDS: PYRAZINAMIDE 500 MG TABLET PO SCH (14:27)
--- NOTE | 2018-07-15 14:44 | NUR ---
Per pt. request faxed letter from Alexa Ivory, patient Advocate to his place of employment care of [employer]. Fax .
[2018-07-15 15:22] LABS: ALPHA-1-ANTITRYPSIN 164 mg/dL (90-200)
[2018-07-15 16:00] VITALS: BP 129/81
[2018-07-15 20:00] VITALS: BP 110/75
[2018-07-16] VITALS: BP 113/67
[2018-07-16] MEDS: CEFEPIME HCL 2 GM VIAL IVP SCH ×4 (00:33→23:11)
[2018-07-16 04:00] VITALS: BP 110/67
[2018-07-16] MEDS: INSULIN HUMULIN R 100 UNIT/ML 3ML SQ SCH ×4 (06:40→23:26)
[2018-07-16] MEDS: INSULIN GLARGINE 100 UNITS/ML 10 ML VIAL SQ SCH ×2 (06:41→23:27)
[2018-07-16] MEDS: IPRATROPIUM/ALBUTEROL SULFATE 3 ML SOLUTION IH SCH ×4 (06:48→23:21)
[2018-07-16 08:59] VITALS: BP 123/76
[2018-07-16] MEDS: PANTOPRAZOLE SODIUM 40 MG TABLET.DR PO SCH (11:27)
[2018-07-16] MEDS: PREDNISONE 20 MG TABLET PO SCH (11:28)
[2018-07-16] MEDS: GUAIFENESIN 600 MG TABLET.ER PO SCH ×2 (11:28→23:11)
[2018-07-16 11:59] VITALS: BP 118/79
[2018-07-16] MEDS: ETHAMBUTOL HCL 400 MG TABLET PO SCH (13:51)
[2018-07-16] MEDS: RIFAMPIN 300 MG CAPSULE PO SCH (13:52)
[2018-07-16] MEDS: PYRAZINAMIDE 500 MG TABLET PO SCH (13:52)
[2018-07-16] MEDS: PYRIDOXINE HCL 50 MG TABLET PO SCH (13:52)
[2018-07-16] MEDS: ISONIAZID 300 MG TAB PO SCH (13:52)
[2018-07-16 16:16] VITALS: BP 133/76
[2018-07-16 19:59] VITALS: BP 128/60
[2018-07-17] VITALS: BP 117/64
[2018-07-17 04:00] VITALS: BP 110/66
[2018-07-17 05:47] LABS: ALBUMIN 2.8 g/dL (3.5-5.0); CREATININE 0.9 mg/dL (0.5-1.5); POTASSIUM 3.5 mmol/L (3.5-5.1); TOTAL PROTEIN, SERUM 7.4 g/dL (6.0-8.3)
[2018-07-17] MEDS: INSULIN HUMULIN R 100 UNIT/ML 3ML SQ SCH ×4 (06:29→21:20)
[2018-07-17 07:39] VITALS: BP 109/78
[2018-07-17] MEDS: CEFEPIME HCL 2 GM VIAL IVP SCH ×2 (07:45→16:23)
[2018-07-17] MEDS: IPRATROPIUM/ALBUTEROL SULFATE 3 ML SOLUTION IH SCH ×4 (08:13→23:19)
[2018-07-17] MEDS: PANTOPRAZOLE SODIUM 40 MG TABLET.DR PO SCH (08:40)
[2018-07-17] MEDS: PREDNISONE 20 MG TABLET PO SCH (08:40)
[2018-07-17] MEDS: GUAIFENESIN 600 MG TABLET.ER PO SCH ×2 (08:40→21:05)
[2018-07-17] MEDS: INSULIN GLARGINE 100 UNITS/ML 10 ML VIAL SQ SCH ×2 (08:43→21:21)
[2018-07-17] MEDS ORDERED: CEFEPIME HCL 1 GM VIAL IVP SCH (09:00)
[2018-07-17 12:00] VITALS: BP 129/81
[2018-07-17] MEDS: ISONIAZID 300 MG TAB PO SCH (13:23)
[2018-07-17] MEDS: ETHAMBUTOL HCL 400 MG TABLET PO SCH (13:23)
[2018-07-17] MEDS: PYRAZINAMIDE 500 MG TABLET PO SCH (13:23)
[2018-07-17] MEDS: PYRIDOXINE HCL 50 MG TABLET PO SCH (13:23)
[2018-07-17] MEDS: RIFAMPIN 300 MG CAPSULE PO SCH (13:23)
[2018-07-17 15:57] VITALS: BP 113/68
[2018-07-17 20:00] VITALS: BP 108/69
[2018-07-18] VITALS: BP 110/71
[2018-07-18] MEDS: CEFEPIME HCL 2 GM VIAL IVP SCH ×2 (00:50→09:00)
[2018-07-18 04:26] VITALS: BP 98/66
[2018-07-18 05:48] LABS: HEMATOCRIT 41.1 % (42-54); MEAN CORPUSCULAR HEMOGLOBIN 29.3 pg (27.0-33.0); MEAN CORPUSCULAR HGB CONC 33.4 g/dL (32.0-36.0); MEAN CORPUSCULAR VOLUME 87.8 fL (79-99); PLATELET COUNT (AUTO) 62 K/uL (130-400); RED BLOOD CELL COUNT(AUTO) 4.68 MIL/uL (4.50-6.20); RED CELL DISTRIBUTION WIDTH 15.1 % (11.0-15.5); WHITE BLOOD COUNT (AUTO) 6.5 K/uL (4.8-10.8)
[2018-07-18 06:06] LABS: ALBUMIN 2.8 g/dL (3.5-5.0); BILIRUBIN,DIRECT 0.4 mg/dL (0.0-0.3); BILIRUBIN,TOTAL 0.9 mg/dL (0.2-1.0); CREATININE 0.9 mg/dL (0.5-1.5); POTASSIUM 3.8 mmol/L (3.5-5.1); TOTAL PROTEIN, SERUM 7.2 g/dL (6.0-8.3)
[2018-07-18] MEDS: INSULIN HUMULIN R 100 UNIT/ML 3ML SQ SCH ×2 (06:32→11:54)
[2018-07-18] MEDS: IPRATROPIUM/ALBUTEROL SULFATE 3 ML SOLUTION IH SCH ×2 (07:11→11:27)
[2018-07-18 08:05] VITALS: BP 102/59
[2018-07-18] MEDS: INSULIN GLARGINE 100 UNITS/ML 10 ML VIAL SQ SCH (08:07)
[2018-07-18] MEDS: GUAIFENESIN 600 MG TABLET.ER PO SCH (08:08)
[2018-07-18] MEDS: PANTOPRAZOLE SODIUM 40 MG TABLET.DR PO SCH (08:08)
[2018-07-18] MEDS: PREDNISONE 20 MG TABLET PO SCH (08:09)
[2018-07-18] MEDS ORDERED: PANT40TA PO (09:57)
[2018-07-18] MEDS ORDERED: PYRA500T15 PO (09:57)
[2018-07-18] MEDS ORDERED: PRED20B PO (09:57)
[2018-07-18] MEDS ORDERED: ISON300 PO (09:57)
[2018-07-18] MEDS ORDERED: RIFA300C2 PO (09:57)
[2018-07-18] MEDS ORDERED: ETHA400T8 PO (09:57)
[2018-07-18] MEDS ORDERED: GUAIF600 PO (09:57)
[2018-07-18] MEDS ORDERED: Pyridoxine Hcl PO (09:57)
[2018-07-18 11:19] VITALS: BP 145/77
[2018-07-18] MEDS: ETHAMBUTOL HCL 400 MG TABLET PO SCH (14:26)
[2018-07-18] MEDS: ISONIAZID 300 MG TAB PO SCH (14:26)
[2018-07-18] MEDS: PYRIDOXINE HCL 50 MG TABLET PO SCH (14:26)
[2018-07-18] MEDS: RIFAMPIN 300 MG CAPSULE PO SCH (14:27)
[2018-07-18] MEDS: PYRAZINAMIDE 500 MG TABLET PO SCH (14:27)
--- NOTE | 2018-07-18 14:45 | NUR ---
DISCHARGE SUMMARY WAS REVIEW WITH PT. REGARDING CONT. DISCHARGE CARE. FOR HIS MEDICATION. SL TO HIS LFA WAS DC , WITH NO HEMATOMA OR REDNESS TO SITE, . RE VIEW . PLAN OF DR. RITTER TO FOLLOW .PT WAS ABLE TO FOCUS WITH HIS FOLLOWUP DISCHARGE CARE.
[2018-07-19 16:12] LABS: ALPHA-1-ANTITRYPSIN 161 mg/dL (90-200)
== END 2018-07-18 14:40 | disposition home or self-care (01) | DRG 853 ==
LOC: EDH 15:24 → OBSVTOIN 16:40 → EDHIP 16:40 → 3DH 19:16 → 3AH 19:22
PROVIDERS: ADMIT Internal Medicine; ATTEND Internal Medicine
PROC: 30233R1 Transfusion of Nonautologous Platelets into Peripheral Vein, Percutaneous Approach (ICD-10-PCS; 2018-07-07)
PROC: 0BBC8ZX Excision of Right Upper Lung Lobe, Via Natural or Artificial Opening Endoscopic, Diagnostic (ICD-10-PCS; principal; 2018-07-08)
PROC: 0B9J8ZX Drainage of Left Lower Lung Lobe, Via Natural or Artificial Opening Endoscopic, Diagnostic (ICD-10-PCS; 2018-07-08)
PROC: 0B9C8ZX Drainage of Right Upper Lung Lobe, Via Natural or Artificial Opening Endoscopic, Diagnostic (ICD-10-PCS; 2018-07-08)
DX: A41.9 Sepsis, unspecified organism (principal); J18.9 Pneumonia, unspecified organism; A15.0 Tuberculosis of lung; A31.9 Mycobacterial infection, unspecified; L03.116 Cellulitis of left lower limb; M62.82 Rhabdomyolysis; M86.9 Osteomyelitis, unspecified; R91.1 Solitary pulmonary nodule; D69.6 Thrombocytopenia, unspecified; E11.65 Type 2 diabetes mellitus with hyperglycemia; E66.9 Obesity, unspecified; F19.90 Other psychoactive substance use, unspecified, uncomplicated; I10 Essential (primary) hypertension; K74.60 Unspecified cirrhosis of liver; Z68.27 Body mass index [BMI] 27.0-27.9, adult; Z78.9 Other specified health status; Z89.412 Acquired absence of left great toe; Z80.0 Family history of malignant neoplasm of digestive organs; Z83.3 Family history of diabetes mellitus; Z80.8 Family history of malignant neoplasm of other organs or systems
CPT/HCPCS: 36415; 36430; 36600; 71045; 71046; 71260; 76000; 80048; 80053; 80076; 81001; 82103; 82104; 82105; 82550; 82803; 82947; 82948; 83036; 83605; 83735; 83874; 83880; 84100; 84484; 85025; 85027; 85610; 85651; 85730; 86038; 86140; 86215; 86235; 86255; 86431; 86701; 86850; 86900; 86901; 87040; 87071; 87116; 87205; 87206; 87390; 87486; 87556; 87581; 87633; 87798; 88104; 88305; 88312; 89051; 93005; 93970; 94640; 94664; A4218; G0378; J0330; J0692; J1815; J1956; J2370; J2704; J2920; J3475; J3490; J7030; P9034

== ENCOUNTER 2020-09-09 18:24 | Inpatient (IN) | payer BC, OTHER ==
[~2020-09-09] VITALS: Ht 172.7 cm; Wt 84.9 kg
[~2020-09-09 18:24] MED LIST: ETHA400T33 PO; GLIP5TAB11 PO; GUAIF600 PO; ISON300 PO; METF-446 PO; PANT40TA PO; PRED20B PO; PYRA500T15 PO; Pyridoxine Hcl PO; RIFA300C2 PO
[2020-09-09] MEDS ORDERED: PANTOPRAZOLE 40 MG/VIAL ONE ×2 (18:49→18:54)
[2020-09-09] MEDS ORDERED: 0.9%NACL 100ML 100 ML IV ONE ×2 (18:49→18:55)
[2020-09-09 18:56] LABS: BASOPHILS % (AUTO) 0.6 % (0.0-5.0); EOSINOPHILS % (AUTO) 1.4 % (0.0-8.0); HEMATOCRIT 33.3 % (42-54); LYMPHOCYTES % (AUTO) 30.6 % (21.0-51.0); MEAN CORPUSCULAR HEMOGLOBIN 30.2 pg (27.0-33.0); MEAN CORPUSCULAR HGB CONC 33.3 g/dL (32.0-36.0); MEAN CORPUSCULAR VOLUME 90.7 fL (79-99); MONOCYTES % (AUTO) 7.7 % (3.0-13.0); NEUTROPHILS % (AUTO) 58.9 % (40.0-77.0); PLATELET COUNT (AUTO) 53 K/uL (130-400); RED BLOOD CELL COUNT(AUTO) 3.67 MIL/uL (4.50-6.20); RED CELL DISTRIBUTION WIDTH 13.9 % (11.0-15.5); WHITE BLOOD COUNT (AUTO) 6.3 K/uL (4.8-10.8)
[2020-09-09 19:22] LABS: B-TYPE NATRIURETIC PEPTIDE 6 pg/mL (0-100); CREATININE 1.4 mg/dL (0.5-1.5); POTASSIUM 3.8 mmol/L (3.5-5.1)
[2020-09-09] MEDS ORDERED: ONDANSETRON 4MG INJ ONE (19:23)
[2020-09-09 19:24] LABS: INR 1.19 (0.85-1.15); PROTHROMBIN TIME 12.8 SEC (9.6-11.6)
[2020-09-09 19:25] LABS: PARTIAL THROMBOPLASTIN TIME 23.4 SEC (26.3-35.5)
[2020-09-09 19:26] LABS: ALBUMIN 2.5 g/dL (3.5-5.0); BILIRUBIN,TOTAL 0.9 mg/dL (0.2-1.0); TOTAL PROTEIN, SERUM 5.4 g/dL (6.0-8.3)
[2020-09-09] MEDS ORDERED: OCTREOTIDE ACETATE 100 MCG/ML AMP IVP SCH (19:30)
[2020-09-09] MEDS ORDERED: OCTREOTIDE 1,250 MCG /NS 250ML (DRIP) IV SCH ×2 (19:30)
[2020-09-09] MEDS ORDERED: ACETAMINOPHEN 325 MG TAB PO PRN ×2 (20:30)
[2020-09-09] MEDS ORDERED: PHARMACY COMMUNICATION MISC PRN (20:30)
[2020-09-09] MEDS ORDERED: MORPHINE 2 MG SYG IV PRN (20:30)
[2020-09-09] MEDS ORDERED: OCTREOTIDE ACETATE 1,250 MCG in 0.9% NACL 250ML 250 ML IV SCH (20:30)
[2020-09-09] MEDS ORDERED: LORAZEPAM 2 MG/ML 1 ML VIAL IVP PRN (20:30)
[2020-09-09] MEDS ORDERED: CEFTRIAXONE 1G VIAL IV SCH (20:30)
[2020-09-09] MEDS ORDERED: CHLORDIAZEPOXIDE HCL 25 MG CAP PO PRN (20:30)
[2020-09-09] MEDS ORDERED: 0.9%NACL 1000ML 1,000 ML IV SCH (20:30)
[2020-09-09] MEDS ORDERED: METRONIDAZOLE 500 MG TABLET PO SCH (21:00)
[2020-09-09] MEDS ORDERED: CEFTRIAXONE 1G VIAL ONE (22:22)
[2020-09-09] MEDS ORDERED: METRONIDAZOLE 500MG/100ML BAG 100 ML ONE (22:22)
[2020-09-10] VITALS (22 sets, daily range): BP systolic 90–115; BP diastolic 52–77
[2020-09-10] MEDS: ONDANSETRON 4MG INJ IV PRN (01:14)
[2020-09-10] MEDS: LACTULOSE 20 GM/30 ML UDCUP PO SCH (04:45)
[2020-09-10] MEDS: 0.9%NACL 1000ML 1,000 ML IV SCH ×3 (04:45→22:46)
[2020-09-10] MEDS ORDERED: LACTULOSE 20 GM/30 ML UDCUP PO PRN (04:45)
[2020-09-10 05:25] LABS: BASOPHILS % (AUTO) 0.4 % (0.0-5.0); EOSINOPHILS % (AUTO) 0.1 % (0.0-8.0); HEMATOCRIT 30.5 % (42-54); LYMPHOCYTES % (AUTO) 26.1 % (21.0-51.0); MEAN CORPUSCULAR HEMOGLOBIN 30.3 pg (27.0-33.0); MEAN CORPUSCULAR HGB CONC 33.8 g/dL (32.0-36.0); MEAN CORPUSCULAR VOLUME 89.7 fL (79-99); MONOCYTES % (AUTO) 10.2 % (3.0-13.0); NEUTROPHILS % (AUTO) 62.9 % (40.0-77.0); PLATELET COUNT (AUTO) 47 K/uL (130-400); WHITE BLOOD COUNT (AUTO) 6.9 K/uL (4.8-10.8)
[2020-09-10 05:37] LABS: INR 1.23 (0.85-1.15); PROTHROMBIN TIME 13.2 SEC (9.6-11.6)
[2020-09-10 05:39] LABS: PARTIAL THROMBOPLASTIN TIME 24.5 SEC (26.3-35.5)
[2020-09-10] MEDS ORDERED: ZOSYN 3.375GM+NS 50ML 50 ML IV SCH (06:00)
[2020-09-10] MEDS ORDERED: IOHEXOL-350 75 ML VIAL IV ONE (07:29)
[2020-09-10 08:37] LABS: HEMATOCRIT 30.1 % (42-54)
[2020-09-10] MEDS ORDERED: PANTOPRAZOLE 40MG INJ 80 MG in 0.9%NACL 100ML 100 ML IV SCH (09:00)
[2020-09-10] MEDS: THIAMINE HCL 100 MG TABLET PO SCH (10:18)
[2020-09-10] MEDS: ZOSYN 3.375GM+NS 50ML 50 ML IV SCH ×2 (10:18→18:17)
[2020-09-10] MEDS: Vitamin B Complex/Vit C/Folic Acid PO SCH (10:18)
[2020-09-10] MEDS: MULTIVITAMIN TABLET PO SCH (10:18)
[2020-09-10] MEDS ORDERED: PROPOFOL 10 MG/ML 20ML VIAL IV ONE ×2 (11:56→12:05)
[2020-09-10] MEDS ORDERED: LIDOCAINE HCL 1% 20 ML VIAL ONE (11:56)
[2020-09-10] MEDS ORDERED: PHENYLEPHRINE HCL 10 MG/ML 1ML VIAL IV ONE (12:13)
[2020-09-10] MEDS ORDERED: GLUCAGON 1MG KIT 1 MG ML IM PRN (15:00)
[2020-09-10] MEDS ORDERED: DEXTROSE 50%-WATER 50 ML DISP.SYRIN IV PRN (15:00)
[2020-09-10] MEDS: INSULIN HUMULIN R 100 UNIT/ML 3ML SQ SCH ×2 (18:25→22:03)
[2020-09-10 20:14] LABS: HEMATOCRIT 27.4 % (42-54)
[2020-09-10] MEDS: PANTOPRAZOLE 40 MG TAB DR PO SCH (21:59)
[2020-09-10] MEDS ORDERED: 0.9%NACL 100ML 100 ML IV SCH (23:45)
[2020-09-11] MEDS: ZOSYN 3.375GM+NS 50ML 50 ML IV SCH (01:12)
[2020-09-11 05:08] LABS: BASOPHILS % (AUTO) 0.6 % (0.0-5.0); EOSINOPHILS % (AUTO) 2.3 % (0.0-8.0); HEMATOCRIT 28.5 % (42-54); LYMPHOCYTES % (AUTO) 37.5 % (21.0-51.0); MEAN CORPUSCULAR HEMOGLOBIN 29.8 pg (27.0-33.0); MEAN CORPUSCULAR HGB CONC 33.3 g/dL (32.0-36.0); MEAN CORPUSCULAR VOLUME 89.3 fL (79-99); MONOCYTES % (AUTO) 8.5 % (3.0-13.0); NEUTROPHILS % (AUTO) 50.7 % (40.0-77.0); PLATELET COUNT (AUTO) 39 K/uL (130-400); RED BLOOD CELL COUNT(AUTO) 3.19 MIL/uL (4.50-6.20); RED CELL DISTRIBUTION WIDTH 13.7 % (11.0-15.5); WHITE BLOOD COUNT (AUTO) 4.7 K/uL (4.8-10.8)
[2020-09-11 05:10] VITALS: BP 101/64
[2020-09-11 05:15] LABS: INR 1.21 (0.85-1.15)
[2020-09-11 05:25] LABS: ALBUMIN 2.3 g/dL (3.5-5.0); BILIRUBIN,TOTAL 0.9 mg/dL (0.2-1.0); POTASSIUM 3.6 mmol/L (3.5-5.1); TOTAL PROTEIN, SERUM 5.1 g/dL (6.0-8.3)
[2020-09-11] MEDS: ONDANSETRON 4MG INJ IV PRN (05:42)
[2020-09-11] MEDS: LACTULOSE 20 GM/30 ML UDCUP PO SCH (05:43)
[2020-09-11] MEDS: INSULIN HUMULIN R 100 UNIT/ML 3ML SQ SCH ×3 (07:31→16:44)
[2020-09-11 08:00] VITALS: BP 106/58
[2020-09-11] MEDS: THIAMINE HCL 100 MG TABLET PO SCH (09:48)
[2020-09-11] MEDS: PANTOPRAZOLE 40 MG TAB DR PO SCH (09:48)
[2020-09-11] MEDS: MULTIVITAMIN TABLET PO SCH (09:48)
[2020-09-11] MEDS: Vitamin B Complex/Vit C/Folic Acid PO SCH (09:48)
[2020-09-11] MEDS: 0.9%NACL 1000ML 1,000 ML IV SCH (10:45)
[2020-09-11 11:30] VITALS: BP 125/59
[2020-09-11] MEDS ORDERED: ZOSYN 3.375GM+NS 50ML 50 ML IV SCH (13:00)
[2020-09-11] MEDS ORDERED: FURO20TA4 PO (14:50)
[2020-09-11] MEDS ORDERED: METF-446 PO (14:50)
[2020-09-11] MEDS ORDERED: GLIP5TAB11 PO (14:50)
[2020-09-11] MEDS ORDERED: PROP10TA10 PO (14:50)
[2020-09-11] MEDS ORDERED: SPIR25TA6 PO (14:50)
[2020-09-11 16:00] VITALS: BP 116/63
[2020-09-11] MEDS ORDERED: METFORMIN HCL 500 MG TABLET PO SCH (17:00)
[2020-09-11] MEDS ORDERED: GLIPIZIDE 5 MG TABLET PO SCH (21:00)
== END 2020-09-11 18:40 | disposition home or self-care (01) | DRG 394 ==
LOC: EDH 18:24 → EDHIP 20:20 → 4BH 09-10 01:14
PROVIDERS: ADMIT Internal Medicine; ATTEND Internal Medicine
PROC: 06L38CZ Occlusion of Esophageal Vein with Extraluminal Device, Via Natural or Artificial Opening Endoscopic (ICD-10-PCS; principal; 2020-09-10)
PROC: 0DB68ZZ Excision of Stomach, Via Natural or Artificial Opening Endoscopic (ICD-10-PCS; 2020-09-10)
DX: K31.7 Polyp of stomach and duodenum (principal); D62 Acute posthemorrhagic anemia; I85.00 Esophageal varices without bleeding; K92.2 Gastrointestinal hemorrhage, unspecified; K70.31 Alcoholic cirrhosis of liver with ascites; F10.10 Alcohol abuse, uncomplicated; E11.9 Type 2 diabetes mellitus without complications; K70.30 Alcoholic cirrhosis of liver without ascites; D69.6 Thrombocytopenia, unspecified; Z20.822 Contact with and (suspected) exposure to COVID-19; I10 Essential (primary) hypertension; Z80.0 Family history of malignant neoplasm of digestive organs; Z83.3 Family history of diabetes mellitus
CPT/HCPCS: 36415; 43244; 43251; 71045; 74160; 80053; 82105; 82140; 82270; 82550; 82948; 83605; 83690; 83880; 84145; 85014; 85018; 85025; 85610; 85730; 86850; 86900; 86901; 86923; 87040; 87426; 93005; A4606; C9113; G0378; J0696; J1815; J2060; J2354; J2370; J2405; J2543; J2704; J3490; J7030; J7050; Q9967; U0003

== ENCOUNTER 2021-09-04 09:35 | Inpatient (IN) | payer BC, OTHER ==
[~2021-09-04] VITALS: Ht 172.7 cm; Wt 88.2 kg
[~2021-09-04 09:35] MED LIST changes: -ETHA400T33 PO; +FURO20TA4 PO; -GUAIF600 PO; -ISON300 PO; -PANT40TA PO; -PRED20B PO; +PROP10TA10 PO; -PYRA500T15 PO; -Pyridoxine Hcl PO; -RIFA300C2 PO; +SPIR25TA6 PO
[2021-09-04] MEDS: OCTREOTIDE ACETATE 100 MCG/ML AMP IV SCH ×2 (10:17→13:01)
[2021-09-04 10:21] LABS: BASOPHILS % (AUTO) 0.6 % (0.0-5.0); HEMATOCRIT 28.8 % (42-54); LYMPHOCYTES % (AUTO) 30.6 % (21.0-51.0); MEAN CORPUSCULAR HEMOGLOBIN 20.7 pg (27.0-33.0); MEAN CORPUSCULAR HGB CONC 29.5 g/dL (32.0-36.0); MEAN CORPUSCULAR VOLUME 70.2 fL (79-99); MONOCYTES % (AUTO) 7.7 % (3.0-13.0); NEUTROPHILS % (AUTO) 58.7 % (40.0-77.0); PLATELET COUNT (AUTO) 58 K/uL (130-400); RED CELL DISTRIBUTION WIDTH 17.7 % (11.0-15.5); WHITE BLOOD COUNT (AUTO) 5.1 K/uL (4.8-10.8)
[2021-09-04 10:28] LABS: INR 1.22 (0.85-1.15); PROTHROMBIN TIME 13.1 SEC (9.6-11.6)
[2021-09-04] MEDS ORDERED: ONDANSETRON 4MG INJ IVP ONE (10:30)
[2021-09-04] MEDS ORDERED: 0.9%NACL 1000ML 1,000 ML IV ONE (10:30)
[2021-09-04 10:40] LABS: CREATININE 1.1 mg/dL (0.5-1.5); POTASSIUM 5.2 mmol/L (3.5-5.1)
[2021-09-04 10:45] LABS: ALBUMIN 2.3 g/dL (3.5-5.0); TOTAL PROTEIN, SERUM 5.9 g/dL (6.0-8.3)
[2021-09-04] MEDS: OCTREOTIDE ACETATE 1,250 MCG in 0.9% NACL 250ML 250 ML IV SCH (10:45)
[2021-09-04 10:54] LABS: PLATELET MORPHOLOGY COMMENT DECREASED
[2021-09-04] MEDS ORDERED: PANT40TA PO (11:19)
[2021-09-04] MEDS ORDERED: DICY20TA3 PO (11:19)
[2021-09-04] MEDS ORDERED: BISA-72 PO (11:19)
[2021-09-04] MEDS ORDERED: PANTOPRAZOLE 40 MG/VIAL IVP ONE (11:30)
[2021-09-04] MEDS ORDERED: PANTOPRAZOLE 40MG INJ 80 MG in 0.9%NACL 100ML 100 ML IVP SCH (12:00)
[2021-09-04] MEDS ORDERED: PANTOPRAZOLE 40 MG/VIAL ONE (12:43)
[2021-09-04] MEDS: CEFTRIAXONE 2GM VIAL IVP SCH (13:00)
[2021-09-04] MEDS: LACTULOSE 20 GM/30 ML UDCUP PO SCH ×2 (13:01→20:28)
[2021-09-04] MEDS: 0.9%NACL 1000ML 1,000 ML IV SCH (13:02)
[2021-09-04] MEDS: RIFAXIMIN 550 MG TABLET PO SCH ×2 (13:02→20:41)
[2021-09-04] MEDS: NA ZIRCON CYCLOSIL(LOKELMA 10GM) PO SCH (13:02)
[2021-09-04 13:59] LABS: HEMATOCRIT 27.3 % (42-54)
[2021-09-04] MEDS ORDERED: ACETAMINOPHEN 500 MG TABLET PO PRN (15:00)
[2021-09-04 17:13] LABS: HEMATOCRIT 25.6 % (42-54)
[2021-09-04] MEDS: INSULIN HUMULIN R 100 UNIT/ML 3ML SQ SCH ×2 (17:46→20:41)
[2021-09-04] MEDS ORDERED: COMPOUND IV MISC 1 EACH IVSOLN MISC PRN (19:30)
[2021-09-04] MEDS: PANTOPRAZOLE 40 MG/VIAL IVP SCH (20:28)
[2021-09-04 22:01] VITALS: BP 125/71
[2021-09-04 23:01] VITALS: BP 126/58
[2021-09-04 23:13] LABS: HEMATOCRIT 23.9 % (42-54)
[2021-09-05] VITALS (19 sets, daily range): BP systolic 93–138; BP diastolic 40–83
[2021-09-05] MEDS: 0.9%NACL 1000ML 1,000 ML IV SCH (00:39)
[2021-09-05 07:09] LABS: BASOPHILS % (AUTO) 0.5 % (0.0-5.0); EOSINOPHILS % (AUTO) 3.5 % (0.0-8.0); HEMATOCRIT 24.5 % (42-54); LYMPHOCYTES % (AUTO) 41.2 % (21.0-51.0); MEAN CORPUSCULAR HEMOGLOBIN 21.4 pg (27.0-33.0); MEAN CORPUSCULAR HGB CONC 30.6 g/dL (32.0-36.0); MONOCYTES % (AUTO) 11.1 % (3.0-13.0); NEUTROPHILS % (AUTO) 43.2 % (40.0-77.0); PLATELET COUNT (AUTO) 53 K/uL (130-400); RED CELL DISTRIBUTION WIDTH 17.9 % (11.0-15.5); WHITE BLOOD COUNT (AUTO) 4.3 K/uL (4.8-10.8)
[2021-09-05] MEDS: INSULIN HUMULIN R 100 UNIT/ML 3ML SQ SCH ×4 (07:30→22:11)
[2021-09-05 07:37] LABS: BILIRUBIN,TOTAL 0.9 mg/dL (0.2-1.0); MAGNESIUM 1.7 mg/dL (1.80-2.40); TOTAL PROTEIN, SERUM 5.1 g/dL (6.0-8.3)
[2021-09-05 07:40] LABS: POTASSIUM 4.3 mmol/L (3.5-5.1)
[2021-09-05] MEDS ORDERED: MAGNESIUM 2GM PREMIX 50ML 50 ML IV PRN (08:30)
[2021-09-05] MEDS: RIFAXIMIN 550 MG TABLET PO SCH ×2 (09:00→20:11)
[2021-09-05] MEDS: LACTULOSE 20 GM/30 ML UDCUP PO SCH ×2 (09:00→20:11)
[2021-09-05] MEDS ORDERED: PHYTONADIONE 10 MG in 0.9%NACL 50ML 50 ML IVPB SCH (09:00)
[2021-09-05] MEDS: PANTOPRAZOLE 40 MG/VIAL IVP SCH ×2 (09:08→20:11)
[2021-09-05] MEDS: NA ZIRCON CYCLOSIL(LOKELMA 10GM) PO SCH (12:00)
[2021-09-05] MEDS: CEFTRIAXONE 2GM VIAL IVP SCH (12:00)
[2021-09-05] MEDS ORDERED: PROPOFOL 10 MG/ML 20ML VIAL IV ONE (13:08)
[2021-09-05] MEDS: OCTREOTIDE ACETATE 1,250 MCG in 0.9% NACL 250ML 250 ML IV SCH (14:10)
[2021-09-05] MEDS ORDERED: 0.9%NACL 10ML VIAL ONE (20:09)
[2021-09-06] VITALS: BP 111/65
[2021-09-06] MEDS: 0.9%NACL 1000ML 1,000 ML IV SCH (03:20)
[2021-09-06 04:00] VITALS: BP 117/69
[2021-09-06] MEDS: INSULIN HUMULIN R 100 UNIT/ML 3ML SQ SCH (06:12)
[2021-09-06 08:00] VITALS: BP 105/69
[2021-09-06 08:03] LABS: BASOPHILS % (AUTO) 0.3 % (0.0-5.0); EOSINOPHILS % (AUTO) 2.6 % (0.0-8.0); HEMATOCRIT 24.8 % (42-54); LYMPHOCYTES % (AUTO) 30.2 % (21.0-51.0); MEAN CORPUSCULAR HEMOGLOBIN 20.8 pg (27.0-33.0); MEAN CORPUSCULAR HGB CONC 29.8 g/dL (32.0-36.0); MEAN CORPUSCULAR VOLUME 69.9 fL (79-99); MONOCYTES % (AUTO) 8.4 % (3.0-13.0); PLATELET COUNT (AUTO) 53 K/uL (130-400); RED BLOOD CELL COUNT(AUTO) 3.55 MIL/uL (4.50-6.20); RED CELL DISTRIBUTION WIDTH 17.9 % (11.0-15.5); WHITE BLOOD COUNT (AUTO) 3.9 K/uL (4.8-10.8)
[2021-09-06 08:11] LABS: POTASSIUM 4.1 mmol/L (3.5-5.1)
[2021-09-06] MEDS: PANTOPRAZOLE 40 MG/VIAL IVP SCH (08:36)
[2021-09-06] MEDS: RIFAXIMIN 550 MG TABLET PO SCH (08:36)
[2021-09-06] MEDS: LACTULOSE 20 GM/30 ML UDCUP PO SCH (08:36)
== END 2021-09-06 12:49 | disposition home or self-care (01) | DRG 432 ==
LOC: EDH 09:35 → EDHIP 09:36 → 2CH 21:11 → 4CH 09-05 17:01
PROVIDERS: ADMIT Internal Medicine; ATTEND Internal Medicine
PROC: 06L38CZ Occlusion of Esophageal Vein with Extraluminal Device, Via Natural or Artificial Opening Endoscopic (ICD-10-PCS; principal; 2021-09-05)
PROC: 0DB68ZZ Excision of Stomach, Via Natural or Artificial Opening Endoscopic (ICD-10-PCS; 2021-09-05)
DX: K70.31 Alcoholic cirrhosis of liver with ascites (principal); I85.11 Secondary esophageal varices with bleeding; D62 Acute posthemorrhagic anemia; E87.2 Acidosis; D68.9 Coagulation defect, unspecified; E87.1 Hypo-osmolality and hyponatremia; K76.6 Portal hypertension; I95.1 Orthostatic hypotension; K70.40 Alcoholic hepatic failure without coma; E11.9 Type 2 diabetes mellitus without complications; E87.5 Hyperkalemia; D69.59 Other secondary thrombocytopenia; K31.7 Polyp of stomach and duodenum; K70.30 Alcoholic cirrhosis of liver without ascites; E87.70 Fluid overload, unspecified; F19.90 Other psychoactive substance use, unspecified, uncomplicated; K72.10 Chronic hepatic failure without coma; K82.8 Other specified diseases of gallbladder; Z80.0 Family history of malignant neoplasm of digestive organs; Z79.84 Long term (current) use of oral hypoglycemic drugs; Z79.899 Other long term (current) drug therapy; Z20.822 Contact with and (suspected) exposure to COVID-19
CPT/HCPCS: 36415; 43244; 43251; 74176; 76700; 80048; 80053; 82105; 82140; 82948; 83605; 83735; 84484; 85014; 85018; 85025; 85610; 85730; 86850; 86900; 86901; 87635; 93005; A4606; C9113; G0378; J0696; J1815; J2354; J2405; J2704; J3430; J3475; J7030; J7050

== ENCOUNTER 2022-02-01 15:36 | Inpatient (IN) | payer OTHER ==
[~2022-02-01] VITALS: Ht 172.7 cm; Wt 82.1 kg
[~2022-02-01 15:36] MED LIST changes: +BISA-72 PO; +DICY20TA3 PO; +PANT40TA PO
[2022-02-01 16:27] LABS: BASOPHILS % (AUTO) 0.4 % (0.0-5.0); EOSINOPHILS % (AUTO) 0.1 % (0.0-8.0); HEMATOCRIT 29.3 % (42-54); LYMPHOCYTES % (AUTO) 11.7 % (21.0-51.0); MEAN CORPUSCULAR HEMOGLOBIN 20.7 pg (27.0-33.0); MEAN CORPUSCULAR HGB CONC 30.4 g/dL (32.0-36.0); MEAN CORPUSCULAR VOLUME 68.1 fL (79-99); MONOCYTES % (AUTO) 5.4 % (3.0-13.0); PLATELET COUNT (AUTO) 54 K/uL (130-400); RED CELL DISTRIBUTION WIDTH 18.4 % (11.0-15.5); WHITE BLOOD COUNT (AUTO) 7.5 K/uL (4.8-10.8)
[2022-02-01] MEDS ORDERED: ONDANSETRON 4MG INJ IVP STA (16:41)
[2022-02-01] MEDS ORDERED: MORPHINE 4 MG SYG IM STA (16:41)
[2022-02-01 16:44] LABS: CREATININE 1.6 mg/dL (0.5-1.5); POTASSIUM 4.2 mmol/L (3.5-5.1)
[2022-02-01 16:51] LABS: ALBUMIN 2.2 g/dL (3.5-5.0); TOTAL PROTEIN, SERUM 6.7 g/dL (6.0-8.3)
[2022-02-01] MEDS ORDERED: 0.9%NACL 1000ML 1,000 ML IV ONE (17:00)
[2022-02-01 17:01] LABS: APPEARANCE,URINE CLEAR (CLEAR); BILIRUBIN,URINE NEGATIVE (NEGATIVE); COLOR,URINE YELLOW (YELLOW); GLUCOSE, URINE (UA) >=1000 mg/dL (NEGATIVE); KETONES,URINE 5 mg/dL (NEGATIVE); LEUKOCYTE ESTERASE ,URINE SMALL (NEGATIVE); NITRATE,URINE NEGATIVE (NEGATIVE); OCCULT BLOOD,URINE NEGATIVE (NEGATIVE); PROTEIN,URINE NEGATIVE (NEGATIVE)
[2022-02-01] MEDS ORDERED: IOHEXOL 350 MG/ML 100ML INFUS..BTL IV ONE (17:17)
[2022-02-01 17:41] LABS: BACTERIA,URINE Rare /HPF (None Seen); RBC,URINE 0-1 /HPF (0-1); SQUAMOUS EPITHELIAL CELL,UR Few /HPF (0-2); YEAST,URINE BUDDING Rare /HPF (None Seen)
[2022-02-01] MEDS ORDERED: CEFTRIAXONE 1G VIAL ONE (19:23)
[2022-02-01] MEDS ORDERED: CEFTRIAXONE 1G VIAL IVP ONE (19:30)
[2022-02-01] MEDS ORDERED: DEXTROSE 50%-WATER 50 ML DISP.SYRIN IV PRN (20:00)
[2022-02-01] MEDS ORDERED: IPRATROPIUM/ALBUTEROL SULFATE 3 ML SOLUTION IH PRN (20:00)
[2022-02-01] MEDS ORDERED: CEFTRIAXONE 1G VIAL IV SCH (20:00)
[2022-02-01] MEDS ORDERED: ONDANSETRON 4MG INJ IV PRN (20:00)
[2022-02-01] MEDS ORDERED: LACTULOSE 20 GM/30 ML UDCUP PO ONE (20:00)
[2022-02-01] MEDS ORDERED: NITROGLYCERIN 0.4 MG SL TAB SL PRN (20:00)
[2022-02-01] MEDS ORDERED: GLUCAGON 1MG KIT 1 MG ML IM PRN (20:00)
[2022-02-01] MEDS ORDERED: ACETAMINOPHEN 325 MG TAB PO PRN ×3 (20:00→20:30)
[2022-02-01 20:10] LABS: INR 1.27 (0.85-1.15); PROTHROMBIN TIME 13.7 SEC (9.6-11.6)
[2022-02-01 20:12] LABS: PARTIAL THROMBOPLASTIN TIME 24.5 SEC (26.3-35.5)
[2022-02-01 20:13] LABS: % IRON SATURATION 9.3 % (30-44)
[2022-02-01 20:27] LABS: MAGNESIUM 1.7 mg/dL (1.80-2.40); PHOSPHORUS 3.1 mg/dL (2.5-4.9)
[2022-02-01] MEDS: AZITHROMYCIN 500MG+NS 250ML IVPB SCH (20:27)
[2022-02-01] MEDS ORDERED: 0.9%NACL 1000ML 1,000 ML IV SCH (20:30)
[2022-02-01 20:33] LABS: HEMOGLOBIN A1C 10.8 % (4.0-6.0)
[2022-02-01] MEDS: FAMOTIDINE 20MG VIAL IV SCH (20:44)
[2022-02-01] MEDS: INSULIN HUMULIN R 100 UNIT/ML 3ML SQ SCH (20:44)
[2022-02-01] MEDS ORDERED: MAGNESIUM 2GM PREMIX 50ML 50 ML IV SCH (21:00)
[2022-02-01] MEDS ORDERED: FAMOTIDINE 20MG VIAL IV SCH (21:00)
[2022-02-01] MEDS: ZOSYN 3.375GM +NS 50ML IV SCH (21:29)
[2022-02-01 23:16] LABS: AMPHET/METH SCREEN,URINE NEGATIVE (NEGATIVE); BARBITURATE SCREEN, URINE NEGATIVE (NEGATIVE); BENZODIAZEPINES SCREEN,URINE NEGATIVE (NEGATIVE); CANNABINOID SCREEN,URINE NEGATIVE (NEGATIVE); COCAINE SCREEN,URINE NEGATIVE (NEGATIVE); PHENCYCLIDINE SCREEN,URINE NEGATIVE (NEGATIVE)
[2022-02-02] MEDS: LACTULOSE 20 GM/30 ML UDCUP PO SCH ×5 (00:03→23:25)
[2022-02-02] MEDS: INSULIN HUMULIN R 100 UNIT/ML 3ML SQ SCH ×4 (00:04→19:14)
[2022-02-02] MEDS: ZOSYN 3.375GM +NS 50ML IV SCH ×3 (04:58→20:28)
[2022-02-02 08:25] LABS: BASOPHILS % (AUTO) 0.5 % (0.0-5.0); EOSINOPHILS % (AUTO) 2.8 % (0.0-8.0); HEMATOCRIT 27.4 % (42-54); LYMPHOCYTES % (AUTO) 27.8 % (21.0-51.0); MEAN CORPUSCULAR HEMOGLOBIN 20.9 pg (27.0-33.0); MEAN CORPUSCULAR HGB CONC 29.6 g/dL (32.0-36.0); MEAN CORPUSCULAR VOLUME 70.6 fL (79-99); MONOCYTES % (AUTO) 10.5 % (3.0-13.0); NEUTROPHILS % (AUTO) 58.2 % (40.0-77.0); PLATELET COUNT (AUTO) 53 K/uL (130-400); RED BLOOD CELL COUNT(AUTO) 3.88 MIL/uL (4.50-6.20); RED CELL DISTRIBUTION WIDTH 18.7 % (11.0-15.5); WHITE BLOOD COUNT (AUTO) 5.7 K/uL (4.8-10.8)
[2022-02-02] MEDS ORDERED: LACT10SO9 PO (10:00)
[2022-02-02 10:03] VITALS: BP 112/77
[2022-02-02 10:36] LABS: ALBUMIN 1.9 g/dL (3.5-5.0); CREATININE 1.1 mg/dL (0.5-1.5); POTASSIUM 4.6 mmol/L (3.5-5.1)
[2022-02-02] MEDS ORDERED: GADOTERATE MEGLUMINE 10 MMOL/20 ML VIAL IV ONE (10:42)
[2022-02-02] MEDS: AZITHROMYCIN 500MG+NS 250ML IVPB SCH (20:27)
[2022-02-02] MEDS: FAMOTIDINE 20MG VIAL IV SCH (20:28)
[2022-02-02 22:10] VITALS: BP 131/80
[2022-02-02] MEDS ORDERED: ZOLPIDEM TARTRATE 5 MG TAB ONE (22:37)
[2022-02-03] MEDS: INSULIN HUMULIN R 100 UNIT/ML 3ML SQ SCH ×5 (00:13→23:38)
[2022-02-03] MEDS: ZOSYN 3.375GM +NS 50ML IV SCH ×3 (03:48→21:36)
[2022-02-03] MEDS: LACTULOSE 20 GM/30 ML UDCUP PO SCH ×4 (03:51→22:54)
[2022-02-03 04:49] VITALS: BP 100/60
[2022-02-03 05:28] LABS: BASOPHILS % (AUTO) 0.7 % (0.0-5.0); EOSINOPHILS % (AUTO) 3.1 % (0.0-8.0); HEMATOCRIT 25.7 % (42-54); LYMPHOCYTES % (AUTO) 41.4 % (21.0-51.0); MEAN CORPUSCULAR HEMOGLOBIN 21.1 pg (27.0-33.0); MEAN CORPUSCULAR HGB CONC 30.4 g/dL (32.0-36.0); MEAN CORPUSCULAR VOLUME 69.5 fL (79-99); MONOCYTES % (AUTO) 9.8 % (3.0-13.0); NEUTROPHILS % (AUTO) 44.8 % (40.0-77.0); PLATELET COUNT (AUTO) 57 K/uL (130-400); RED CELL DISTRIBUTION WIDTH 18.7 % (11.0-15.5); WHITE BLOOD COUNT (AUTO) 4.5 K/uL (4.8-10.8)
[2022-02-03 05:51] LABS: ALBUMIN 1.8 g/dL (3.5-5.0); CREATININE 1.1 mg/dL (0.5-1.5); POTASSIUM 3.9 mmol/L (3.5-5.1); TOTAL PROTEIN, SERUM 5.6 g/dL (6.0-8.3)
[2022-02-03 07:19] VITALS: BP 119/74
[2022-02-03 12:19] VITALS: BP 101/55
[2022-02-03 16:18] VITALS: BP 115/77
[2022-02-03 20:34] VITALS: BP 118/73
[2022-02-03] MEDS: AZITHROMYCIN 500MG+NS 250ML IVPB SCH (21:35)
[2022-02-03] MEDS: FAMOTIDINE 20MG VIAL IV SCH (21:36)
[2022-02-03] MEDS: ZOLPIDEM TARTRATE 5 MG TAB PO PRN (22:54)
[2022-02-03 23:49] VITALS: BP 109/61
[2022-02-04 03:49] VITALS: BP 114/63
[2022-02-04] MEDS: ZOSYN 3.375GM +NS 50ML IV SCH ×3 (04:27→21:13)
[2022-02-04 05:42] LABS: BASOPHILS % (AUTO) 0.7 % (0.0-5.0); EOSINOPHILS % (AUTO) 3.6 % (0.0-8.0); HEMATOCRIT 26.9 % (42-54); LYMPHOCYTES % (AUTO) 40.3 % (21.0-51.0); MEAN CORPUSCULAR HGB CONC 30.1 g/dL (32.0-36.0); MEAN CORPUSCULAR VOLUME 69.7 fL (79-99); MONOCYTES % (AUTO) 9.8 % (3.0-13.0); NEUTROPHILS % (AUTO) 45.3 % (40.0-77.0); PLATELET COUNT (AUTO) 59 K/uL (130-400); RED BLOOD CELL COUNT(AUTO) 3.86 MIL/uL (4.50-6.20); WHITE BLOOD COUNT (AUTO) 3.1 K/uL (4.8-10.8)
[2022-02-04] MEDS: LACTULOSE 20 GM/30 ML UDCUP PO SCH ×4 (05:56→21:14)
[2022-02-04 05:57] LABS: ALBUMIN 1.8 g/dL (3.5-5.0); CREATININE 1.1 mg/dL (0.5-1.5); POTASSIUM 4.1 mmol/L (3.5-5.1); TOTAL PROTEIN, SERUM 5.7 g/dL (6.0-8.3)
[2022-02-04] MEDS: INSULIN HUMULIN R 100 UNIT/ML 3ML SQ SCH ×3 (06:14→21:16)
[2022-02-04 07:16] VITALS: BP 113/68
[2022-02-04] MEDS ORDERED: IRON SUCROSE COMPLEX 500 MG in 0.9% NACL 250ML 250 ML IV SCH (08:30)
[2022-02-04] MEDS ORDERED: EPOETIN ALFA-EPBX (NON-ESRD) 10,000 UNIT/ML VIAL SQ SCH (09:00)
[2022-02-04 09:14] LABS: INR 1.13 (0.85-1.15); PROTHROMBIN TIME 12.2 SEC (9.6-11.6)
[2022-02-04] MEDS: SPIRONOLACTONE 25 MG TAB PO SCH (09:50)
[2022-02-04] MEDS: FUROSEMIDE 20 MG TABLET PO SCH (09:50)
[2022-02-04 12:11] VITALS: BP 123/77
[2022-02-04] MEDS ORDERED: FENTANYL CITRATE PF 50 MCG/1 ML 2ML VIAL ONE (15:27)
[2022-02-04] MEDS ORDERED: MIDAZOLAM HCL 1 MG/ML 2ML VIAL ONE (15:28)
[2022-02-04 16:15] VITALS: BP 129/78
[2022-02-04] MEDS ORDERED: LIDOCAINE HCL 1% 20 ML VIAL ONE (16:20)
[2022-02-04] MEDS ORDERED: HYDROCODONE/ACETAMINOPHEN 5/325 MG TAB PO PRN (17:00)
[2022-02-04 19:57] VITALS: BP 126/74
[2022-02-04] MEDS: FAMOTIDINE 20MG VIAL IV SCH (21:15)
[2022-02-04] MEDS: ZOLPIDEM TARTRATE 5 MG TAB PO PRN (21:27)
[2022-02-04 23:51] VITALS: BP 127/74
[2022-02-05 03:56] VITALS: BP 110/65
[2022-02-05] MEDS: ZOSYN 3.375GM +NS 50ML IV SCH (04:42)
[2022-02-05 05:57] LABS: BASOPHILS % (AUTO) 0.7 % (0.0-5.0); EOSINOPHILS % (AUTO) 4.1 % (0.0-8.0); HEMATOCRIT 28.3 % (42-54); LYMPHOCYTES % (AUTO) 46.2 % (21.0-51.0); MEAN CORPUSCULAR HGB CONC 29.3 g/dL (32.0-36.0); MEAN CORPUSCULAR VOLUME 71.6 fL (79-99); MONOCYTES % (AUTO) 9.3 % (3.0-13.0); NEUTROPHILS % (AUTO) 39.4 % (40.0-77.0); PLATELET COUNT (AUTO) 80 K/uL (130-400); RED BLOOD CELL COUNT(AUTO) 3.95 MIL/uL (4.50-6.20); RED CELL DISTRIBUTION WIDTH 19.3 % (11.0-15.5); WHITE BLOOD COUNT (AUTO) 2.9 K/uL (4.8-10.8)
[2022-02-05] MEDS: INSULIN HUMULIN R 100 UNIT/ML 3ML SQ SCH (06:15)
[2022-02-05 06:29] LABS: CREATININE 1.1 mg/dL (0.5-1.5); POTASSIUM 4.1 mmol/L (3.5-5.1)
[2022-02-05 06:42] LABS: % IRON SATURATION 100.6 % (30-44)
[2022-02-05 07:29] LABS: BASOPHILS % (MANUAL) 4 % (0-2); EOSINOPHILS % (MANUAL) 2 % (1-6); LYMPHOCYTES % (MANUAL) 40 % (22-44); MAN.DIFF COMMENT-IMPRESSION MANUAL DIFFERENTIAL; MONOCYTES % (MANUAL) 4 % (2-9); SEGMENTED NEUTROPHILS % 50 % (40-70)
[2022-02-05 07:33] LABS: PLATELET MORPHOLOGY COMMENT MARKED DECREASE
[2022-02-05 08:35] VITALS: BP 107/68
[2022-02-05] MEDS: LACTULOSE 20 GM/30 ML UDCUP PO SCH ×2 (09:00→09:53)
[2022-02-05] MEDS: FUROSEMIDE 20 MG TABLET PO SCH (09:50)
[2022-02-05] MEDS: SPIRONOLACTONE 25 MG TAB PO SCH (09:53)
[2022-02-05] MEDS ORDERED: LACT10SO9 PO (10:05)
[2022-02-05] MEDS ORDERED: ONDA8TAB12 PO (10:05)
[2022-02-05] MEDS ORDERED: SPIR25TA6 PO (10:05)
[2022-02-06 20:15] LABS: HEPATITIS A IGM ANTIBODY Non-Reactive (Nonreactive); HEPATITIS B CORE IGM ANTIBODY Non-Reactive (Negative); HEPATITIS B SURFACE ANTIGEN Non-Reactive (Nonreactive); HEPATITIS C ANTIBODY Non-Reactive (Nonreactive)
== END 2022-02-05 11:10 | disposition home or self-care (01) | DRG 871 ==
LOC: EDH 15:36 → EDHIP 19:30 → 3BH 02-02 21:34
PROVIDERS: ADMIT Internal Medicine; ATTEND Internal Medicine
PROC: 0FB13ZX Excision of Right Lobe Liver, Percutaneous Approach, Diagnostic (ICD-10-PCS; principal; 2022-02-01)
PROC: 30233M1 Transfusion of Nonautologous Plasma Cryoprecipitate into Peripheral Vein, Percutaneous Approach (ICD-10-PCS; 2022-02-04)
PROC: 30233R1 Transfusion of Nonautologous Platelets into Peripheral Vein, Percutaneous Approach (ICD-10-PCS; 2022-02-04)
DX: A41.9 Sepsis, unspecified organism (principal); J18.9 Pneumonia, unspecified organism; N39.0 Urinary tract infection, site not specified; E87.1 Hypo-osmolality and hyponatremia; N17.9 Acute kidney failure, unspecified; J91.8 Pleural effusion in other conditions classified elsewhere; Z20.822 Contact with and (suspected) exposure to COVID-19; D64.9 Anemia, unspecified; E11.65 Type 2 diabetes mellitus with hyperglycemia; K72.90 Hepatic failure, unspecified without coma; D69.6 Thrombocytopenia, unspecified; D70.9 Neutropenia, unspecified; R65.20 Severe sepsis without septic shock; K59.00 Constipation, unspecified; K70.31 Alcoholic cirrhosis of liver with ascites; E66.9 Obesity, unspecified; F17.210 Nicotine dependence, cigarettes, uncomplicated; Z91.19 Patient's noncompliance with other medical treatment and regimen; Z86.14 Personal history of Methicillin resistant Staphylococcus aureus infection; Z80.0 Family history of malignant neoplasm of digestive organs; Z68.27 Body mass index [BMI] 27.0-27.9, adult
CPT/HCPCS: 36415; 47000; 71045; 74176; 74183; 76705; 80053; 80074; 80305; 81001; 82105; 82140; 82270; 82378; 82728; 82948; 83036; 83540; 83550; 83605; 83690; 83735; 84100; 84145; 85025; 85610; 85730; 86316; 86850; 86900; 86901; 86927; 87040; 87088; 87635; 87804; 93005; 99152; C9803; G0378; J0456; J0696; J1756; J1815; J2250; J2270; J2405; J2543; J3010; J3475; J3490; J7030; J7050; P9017; P9034; Q9967

== ENCOUNTER 2022-04-28 11:14 | Emergency (ER) | payer OTHER ==
[~2022-04-28] VITALS: Ht 172.7 cm; Wt 80.7 kg
[~2022-04-28 11:14] MED LIST changes: +LACT10SO9 PO; +ONDA8TAB12 PO
[2022-04-28 11:50] LABS: BASOPHILS % (AUTO) 0.5 % (0.0-5.0); EOSINOPHILS % (AUTO) 2.2 % (0.0-8.0); HEMATOCRIT 37.8 % (42-54); LYMPHOCYTES % (AUTO) 14.6 % (21.0-51.0); MEAN CORPUSCULAR HEMOGLOBIN 29.6 pg (27.0-33.0); MEAN CORPUSCULAR HGB CONC 33.3 g/dL (32.0-36.0); MEAN CORPUSCULAR VOLUME 88.7 fL (79-99); NEUTROPHILS % (AUTO) 74.5 % (40.0-77.0); PLATELET COUNT (AUTO) 55 K/uL (130-400); RED BLOOD CELL COUNT(AUTO) 4.26 MIL/uL (4.50-6.20); RED CELL DISTRIBUTION WIDTH 15.9 % (11.0-15.5); WHITE BLOOD COUNT (AUTO) 5.5 K/uL (4.8-10.8)
[2022-04-28 11:52] LABS: APPEARANCE,URINE CLOUDY (CLEAR); BILIRUBIN,URINE 0.5 mg/dL (NEGATIVE); COLOR,URINE YELLOW (YELLOW); GLUCOSE, URINE (UA) 500 mg/dL (NEGATIVE); KETONES,URINE 5 mg/dL (NEGATIVE); LEUKOCYTE ESTERASE ,URINE 250 Leu/uL (NEGATIVE); NITRATE,URINE NEGATIVE (NEGATIVE); OCCULT BLOOD,URINE NEGATIVE (NEGATIVE); PH,URINE 6.5 (5.0-8.0); PROTEIN,URINE 30 mg/dL (NEGATIVE)
[2022-04-28 12:00] LABS: ALBUMIN 2.3 g/dL (3.5-5.0); POTASSIUM 3.6 mmol/L (3.5-5.1); TOTAL PROTEIN, SERUM 6.4 g/dL (6.0-8.3)
[2022-04-28] MEDS ORDERED: BENZONATATE 100 MG CAPSULE PO SCH (12:00)
[2022-04-28 12:04] LABS: BACTERIA,URINE RARE /HPF (None Seen); MUCUS,URINE MOD LPF (None Seen); OTHER CASTS, URINE 1 /LPF (None Seen); SQUAMOUS EPITHELIAL CELL,UR MOD /HPF (0-2)
[2022-04-28 12:12] VITALS: BP 124/80
[2022-04-28] MEDS ORDERED: DOXY-469 PO (12:49)
[2022-04-28] MEDS ORDERED: GUAIF10 PO (12:49)
[2022-04-28] MEDS ORDERED: ALBU90AE2 IH (12:49)
[2022-04-28] MEDS ORDERED: DEXAMETHASONE SOD PHOSPHATE 4 MG/ML 1ML VIAL IVP SCH (13:00)
== END 2022-04-28 13:17 | disposition home or self-care (01) ==
LOC: EDH 11:14
DX: J40 Bronchitis, not specified as acute or chronic (principal); Z20.822 Contact with and (suspected) exposure to COVID-19; E11.9 Type 2 diabetes mellitus without complications; Z79.899 Other long term (current) drug therapy; Z79.84 Long term (current) use of oral hypoglycemic drugs
CPT/HCPCS: 99285; 96374; 71045; 87635; 84484; 80053; 83880; 85025; 87088; 87804 ×2; 81001; 36415; 93005; J1100; C9803

== ENCOUNTER 2022-10-04 08:44 | Emergency (ER) | payer BC, OTHER ==
[~2022-10-04] VITALS: Ht 172.7 cm; Wt 78.0 kg
[~2022-10-04 08:44] MED LIST changes: +ALBU90AE2 IH; -DICY20TA3 PO; +FERR500P12 PO; +FLUD.1 PO; -FURO20TA4 PO; +FURO80TA3 PO; +GUAIF10 PO; +Midodrine Hcl PO; -PROP10TA10 PO; +SUCR1TAB PO; +TAMS-1 PO
[2022-10-04 09:14] LABS: BASOPHILS % (AUTO) 0.8 % (0.0-5.0); EOSINOPHILS % (AUTO) 4.7 % (0.0-8.0); HEMATOCRIT 32.4 % (42-54); LYMPHOCYTES % (AUTO) 28.2 % (21.0-51.0); MEAN CORPUSCULAR HEMOGLOBIN 30.7 pg (27.0-33.0); MEAN CORPUSCULAR VOLUME 93.1 fL (79-99); MONOCYTES % (AUTO) 7.5 % (3.0-13.0); NEUTROPHILS % (AUTO) 58.5 % (40.0-77.0); PLATELET COUNT (AUTO) 76 K/uL (130-400); RED BLOOD CELL COUNT(AUTO) 3.48 MIL/uL (4.50-6.20); RED CELL DISTRIBUTION WIDTH 14.7 % (11.0-15.5); WHITE BLOOD COUNT (AUTO) 3.9 K/uL (4.8-10.8)
[2022-10-04 09:22] LABS: CREATININE 1.3 mg/dL (0.5-1.5); POTASSIUM 4.4 mmol/L (3.5-5.1)
[2022-10-04 09:27] LABS: TOTAL PROTEIN, SERUM 7.2 g/dL (6.0-8.3)
[2022-10-04 09:50] LABS: APPEARANCE,URINE CLEAR (CLEAR); BILIRUBIN,URINE NEGATIVE (NEGATIVE); COLOR,URINE YELLOW (YELLOW); GLUCOSE, URINE (UA) NEGATIVE (NEGATIVE); KETONES,URINE NEGATIVE (NEGATIVE); LEUKOCYTE ESTERASE ,URINE NEGATIVE Leu/uL (NEGATIVE); NITRATE,URINE NEGATIVE (NEGATIVE); OCCULT BLOOD,URINE NEGATIVE (NEGATIVE); PH,URINE 7.5 (5.0-8.0); PROTEIN,URINE NEGATIVE (NEGATIVE); UROBILINOGEN,URINE 3 mg/dL (0.2-1.0)
[2022-10-04] MEDS ORDERED: PANTOPRAZOLE 40 MG/VIAL IVP ONE (10:00)
[2022-10-04] MEDS ORDERED: OCTREOTIDE ACETATE 100 MCG/ML AMP IV ONE (10:00)
[2022-10-04 10:12] LABS: MUCUS,URINE RARE LPF (None Seen); RBC,URINE 0-1 /HPF (0-1); SQUAMOUS EPITHELIAL CELL,UR RARE /HPF (0-2); WBC,URINE 0-1 /HPF (0-1)
[2022-10-04] MEDS ORDERED: ONDANSETRON 4MG INJ ONE (10:19)
[2022-10-04] MEDS ORDERED: ONDANSETRON 4MG INJ IVP ONE (11:00)
[2022-10-04 12:27] VITALS: BP 106/69
== END 2022-10-04 12:31 | disposition home or self-care (01) ==
LOC: EDH 08:44
DX: K92.1 Melena (principal); E11.9 Type 2 diabetes mellitus without complications; Z79.84 Long term (current) use of oral hypoglycemic drugs; Z79.899 Other long term (current) drug therapy; Z85.05 Personal history of malignant neoplasm of liver
CPT/HCPCS: 99284; 96374; 96375; 82270; 80053; 85025; 86850; 86900; 86901; 81001; 36415; 93005; J2405; J2354; C9113